=== PATIENT | female | born 1985 | race Caucasian/White ===

== ENCOUNTER 2023-07-02 02:57 | Emergency (ER) | payer BC, SELFPAY ==
[2023-07-02 01:30] VITALS: BMI 27.9
--- NOTE | 2023-07-02 03:28 | DOWNTIME ---
There was a [employer] Client [employer] Downtime on 07/02/2023 from 0100 to 07/02/2023 at 0322. Downtime documentation of patient's care, including medication administrations, has been reconciled in the electronic record per guidelines. Refer to the
patient's paper chart under the miscellaneous tab to see printed paper medication records and downtime forms.
[2023-07-02 03:55] LABS: Blood Urea Nitrogen 12 mg/dl (7-17); Calcium 8.8 mg/dl (8.4-10.2); Carbon Dioxide 21 mmol/L (22-30); Chloride 109 mmol/L (98-107); Estimated Creatinine Clearance 115 ml/min; Glucose 106 mg/dl (70-99); Potassium 3.6 mmol/L (3.5-5.1); Sodium 135 mmol/L (135-145); eGFR > 60.00
[2023-07-02 03:57] LABS: % Basophils 0.9 % (0-2); % Eosinophils 2.3 % (0-6); % Immature Granulocytes 0.3 % (0-0.5); % Lymphocytes 37.4 % (20.5-51.1); % Neutrophils 52.1 % (42.2-75.2); Absolute Basophils 0.1 10^3/uL (0-0.2); Absolute Eosinophils 0.3 10^3/uL (0-0.7); Absolute Lymphocytes 4.2 10^3/uL (1.2-3.4); Absolute Monocytes 0.8 10^3/uL (0.1-0.6); Absolute Neutrophils 5.9 10^3/uL (1.4-6.5); Hematocrit 38.6 % (37.0-47.0); Hemoglobin 13.1 g/dL (12.0-16.0); Mean Corp Hgb Conc. 33.9 g/dL (33.0-37.0); Mean Corpuscular Hgb 32.6 pg (27.0-31.0); Mean Platelet Volume 9.8 fL (7.4-10.4); Nucleated Red Blood Cells % 0 %; Platelet Count 276 10^3/uL (130-400); Red Blood Cell Count 4.02 10^6/uL (4.20-5.40); White Blood Cell Count 11.2 10^3/uL (4.8-10.8)
[2023-07-02 04:01] VITALS: BP 131/85
--- NOTE | 2023-07-02 04:16 | ED.GENMED ---
History of Present Illness
General
Chief Complaint: Dizziness
Source: patient
Nursing documentation reviewed up to this point in time: agreed with
Travel History
Have you had any contact with someone who has COVID-19?: No
Do you have any symptoms of coronavirus? Fever > 100 degrees, chills, cough, shortness of breath, sore throat, loss of taste or smell, muscle aches, or headache?: No
History of Present Illness
History of Present Illness:
Patient Name: Anjali Baca

Medical Record Number:� [id number]
: 1985
�
HPI: 37-year-old female presents emergency room complaining of dizziness.� Patient was sleeping when she awoke and was feeling dizzy like the room was spinning.� Patient developed nausea.� No headache.� No focal weakness.� Patient states she began
to have rapid heartbeat and was breathing rapidly.� She had tingling in her hands and feet.� Patient denies any symptoms at the time of my evaluation.� No history of similar symptoms.
�
�
PMH: None
�
PSH: ovarian cyst removal
�
FH: N/A
�
Social History
Smoker: n/a
Alcohol: Social
Drugs: Denies
�
ROS:
All systems reviewed and negative� (X)
Constitutional:
HEENT:
Respiratory:
Cardiac:
Abd/GI:
:
Musculoskeletal:
Skin:
Neuro: Dizzy
Endo:
Hematologic:
Psych:
�
�
Physical Exam:
General: Awake, Alert, Oriented X3. No acute distress.
Vitals mild hypertension
Head: Atraumatic
Eyes: Pupils equal, EOMI
Throat: Airway intact, no exudates
Neck: Trachea midline
Lungs: Clear and equal b/l
Heart: Regular rate, no murmurs
Abd: Soft, Non-tender, No pulsatile mass
Neuro: Cranial nerves intact, muscle strength equal bilaterally, cerebellar exam normal
Skin: Warm, dry, no rash
Extremities: pulses equal b/l, no edema
�
�
ECG:
NSR @ 96, normal axis, normal intervals, no ischemia
�
�
�
Imaging:
[default value]
�
�
POX: 99
Patient is Not Hypoxic
�
�
�
�
�
Clinical Impression/MDM:
Benign Positional vertigo, dehydration, dysrhythmia, anxiety
Pt was feeling better upon arrival to ER. However at approx. 2am she states symptoms returned.� She denies sense of room spinning but rather feels tingling all over and nausea.� Will treat with anit-emetics.
Signed out @ [address] Kwok� With plan to see respons to ivf and anti-emetics
�
Past History
Past History
ED Past Medical History: None and Other (hemorrhoids )
ED Past Surgical History: Gynecological (Endometriosis) and Other (Laparoscopic proceedure for endometriosis)
Social History
Tobacco: Non-smoker
Alcohol: Daily (wine 1-2 glasses)
Personal:
Living: with family
Employment: Employed
Phy Exam
Physical Exam
Physical Exam:
.
Course
Orders/Labs/Results
Orders:
Orders
07/02/23
Electrocardiogram (*1) Stat
Reason for Study: Chest Pain
Comment: DONE NO ORDER ENTERED
07/02/23 01:36
Complete Blood Count/With Diff Routine
07/02/23 02:35
Diphenhydramine [Benadryl] 50 mg .ROUTE .STK-MED ONE
Metoclopramide [Reglan] 10 mg .ROUTE .STK-MED ONE
07/02/23 02:48
Basic Metabolic Panel Routine
Abnormal Lab Results
07/02/23 07/02/23
01:36 02:48
WBC 11.2 H 10^3/uL
(4.8-10.8)
RBC 4.02 L 10^6/uL
(4.20-5.40)
MCH 32.6 H pg
(27.0-31.0)
Absolute Lymphs (auto) 4.2 H 10^3/uL
(1.2-3.4)
Absolute Monos (auto) 0.8 H 10^3/uL
(0.1-0.6)
Chloride 109 H mmol/L
(98-107)
Carbon Dioxide 21 L mmol/L
(22-30)
Glucose 106 H mg/dl
(70-99)
07/02/23 01:36
07/02/23 02:48
Vital Signs
Initial and Last Documented VS:
Initial Vital Signs
Pulse Resp Pulse Ox
97 16 98
07/02/23 03:29 07/02/23 03:29 07/02/23 03:29
Last Documented Vital Signs
Pulse Resp BP Pulse Ox
103 24 131/85 97
07/02/23 04:15 07/02/23 04:15 07/02/23 04:01 07/02/23 04:15
*Critical Care Note
Total Time (30-74mins, 75-104mins- exclusive of procedures): Not Applicable
ED Attending Note
-
Portions of this chart may have been created with voice recognition software.� Occasional wrong word or��sound alike� substitutions may have occurred due to the inherent limitations of voice recognition software.
Discharge Plan
Departure
Patient Disposition: Home (Routine Discharge)
Date of Disposition: 07/02/23
Time of Disposition: 04:16
Patient with high blood pressure during this ER visit?: Yes
Condition: Good
Discharge Problem:
Vertigo
Instructions: Vertigo (a Type of Dizziness) (DC), BLOOD PRESSURE
Prescriptions:
No Action
Mirena 20 mcg/24 hours (8 yrs) 52 mg Intrauterine Device
1 device INTRAUTERINE ONCE
desog-e.estradiol/e.estradiol [Kariva (28)] 0.15-0.02 mgx21 /0.01 mg x 5 Tablet
1 tab PO DAILY
Referrals:
Fortino Romero MD [Family Provider] -
Stand Alone Forms: Return to Work
Activity Restrictions/Additional Instructions:
It was a pleasure meeting you and taking part in your care. We hope for your continued healing and wellness.
Please read discharge instructions in their entirety. However, they are for general education and may not describe your exact diagnosis at discharge. Information on your ER visit and medical conditions were discussed with you along with appropriate
follow up information...
If indicated, please take your medications as instructed and indicated on discharge paperwork.
Please schedule a follow up appointment as directed. Call to schedule an appointment
Please return to the emergency department with ANY change in, persisting, or worsening of symptoms. If any of your symptoms do not improve, or persist, or become more severe within 6-12 hours, please return to the emergency department for further
care.
Please return to the emergency department if you develop a headache, neck pain/stiffness, fever greater than 100.4F, chest pain, shortness of breath, persistent nausea, vomiting, slurred speech, difficulty walking, numbness/tingling, weakness, signs
of infection or any other symptoms that are worrisome to you.
If you have any questions or concerns please do not hesitate to call the Hospital at .
Interventions
Interventions:
*Nursing Disposition Last Done: 07/02/23 04:34
Discharge Date and Time
Discharge Date/Time: 07/02/23 04:36
Print Language: YAKUT
== END 2023-07-02 04:36 | disposition home or self-care (01) ==
LOC: EMR 02:57
PROVIDERS: Emergency Medicine; EMERGENCY PHYSICIAN Student in an Organized Health Care Education/Training Program; FAMILY PHYSICIAN Internal Medicine Geriatric Medicine
DX: R42 Dizziness and giddiness (principal)
CPT/HCPCS: 99283; 80048; 85025; 93005

== ENCOUNTER 2023-07-08 16:09 | Emergency (ER) | payer BC, SELFPAY ==
[2023-07-08 16:11] VITALS: BP 134/98
[2023-07-08] MEDS: ZOFRAN ODT (ORALLY DISINTEGRATING) 4 MG PO (16:27)
[2023-07-08 16:38] LABS: % Basophils 0.6 % (0-2); % Eosinophils 0.7 % (0-6); % Immature Granulocytes 0.2 % (0-0.5); % Lymphocytes 21.4 % (20.5-51.1); % Monocytes 4.7 % (1.7-9.3); % Neutrophils 72.4 % (42.2-75.2); Absolute Basophils 0.1 10^3/uL (0-0.2); Absolute Eosinophils 0.1 10^3/uL (0-0.7); Absolute Lymphocytes 1.9 10^3/uL (1.2-3.4); Absolute Monocytes 0.4 10^3/uL (0.1-0.6); Absolute Neutrophils 6.3 10^3/uL (1.4-6.5); Hematocrit 36.2 % (37.0-47.0); Hemoglobin 12.6 g/dL (12.0-16.0); Mean Corp Hgb Conc. 34.8 g/dL (33.0-37.0); Mean Corpuscular Hgb 32.8 pg (27.0-31.0); Mean Corpuscular Volume 94.3 fL (81.0-99.0); Mean Platelet Volume 9.8 fL (7.4-10.4); Nucleated Red Blood Cells % 0 %; Platelet Count 280 10^3/uL (130-400); Red Blood Cell Count 3.84 10^6/uL (4.20-5.40); White Blood Cell Count 8.7 10^3/uL (4.8-10.8)
--- NOTE | 2023-07-08 16:47 | ED.GENMED ---
History of Present Illness
General
Chief Complaint: Dizziness
Source: patient
Exam Limitations: none
Time Seen by Provider: 07/08/23 16:42
Nursing documentation reviewed up to this point in time: agreed with
Travel History
Have you had any contact with someone who has COVID-19?: No
Do you have any symptoms of coronavirus? Fever > 100 degrees, chills, cough, shortness of breath, sore throat, loss of taste or smell, muscle aches, or headache?: No
History of Present Illness
History of Present Illness:
37-year-old female with a past medical history of cervical lesions presenting to the emergency department today with dizziness for the past week. 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
of dizziness, nausea, and palpitations. Patient has never had anything like this before. Patient states that she felt like she was going to and she called EMS. Patient states that on the way to emergency department, she started to feel
better. She was treated at that time with Reglan and Benadryl which improved her symptoms. Patient did not receive a CT scan at that time. She follow-up with her PCP who diagnosed her with vertigo. Her PCP also scheduled her for cardiology
follow-up considering her tachycardia. Patient states that she felt well for a few days, however she started to have more episodes. She did not be concerned about these because she has been nose vertigo, however today when she was at school
working, the episode got so severe and she felt so sick that she went to her school nurse to notice that she was pale, her blood pressure was elevated, and he called EMS. Patiently currently feels dizzy and nauseous, states that she feels like she
is on a moving boat. Patient currently denies chest pain, shortness of breath.
Past History
Past History
ED Past Medical History: None and Other (hemorrhoids )
ED Past Surgical History: Gynecological (Endometriosis) and Other (Laparoscopic proceedure for endometriosis)
Social History
Tobacco: Non-smoker
Alcohol: Daily (wine 1-2 glasses)
Personal:
Living: with family
Employment: Employed
Review of Systems
Review of Systems
All Other Systems: ROS reviewed and negative except as documented in HPI and ROS
Phy Exam
Physical Exam
Physical Exam:
Vitals: Patient vital signs are stable
General: Patient is well appearing and in no acute distress
Skin: Warm and dry, no rashes or lesions
Head: Normocephalic, atraumatic
Eyes: EOMs intact, no nystagmus
Cardiac: Regular rate and rhythm, no murmurs
Pulm: Normal respiratory effort
Abdomen: No abdominal tenderness
Neuro: AAOx3. CN II-XII intact. No focal neurologic deficits.
Course
Orders/Labs/Results
Orders:
Orders
07/08/23 16:20
EKG [Electrocardiogram (*1)] Urgent
Reason for Study: Chest Pain
EKG- Treatment ONCE
Test Result ONCE
07/08/23 16:26
Ondansetron Orally Disint [Zofran Odt (Orally Disintegrating)] 4 mg .ROUTE .STK-MED ONE
07/08/23 16:27
Ondansetron Orally Disint [Zofran Odt (Orally Disintegrating)] 4 mg PO NOW STA
07/08/23 16:31
CBC/With Diff [Complete Blood Count/With Diff] Urgent
CMP [Comprehensive Metabolic Panel] Urgent
HCG, Serum Qualitative Screen Urgent
Troponin I Urgent
07/08/23 17:06
0.9% Sodium Chloride 500 ml [Nss] 500 ml IV BOLUS
Diphenhydramine [Benadryl] 12.5 mg IV NOW STA
Metoclopramide [Reglan] 10 mg IV NOW STA
07/08/23 17:16
CT Head W/o Iv Contrast Urgent
Comment:
Reason For Exam: persistent dizziness
07/08/23 17:31
Physical Therapy Consult [Pt Eval And Treat] Urgent
Treatment: vestibular evaluation
Activity Level: Ambulate
Abnormal Lab Results
07/08/23
16:31
RBC 3.84 L 10^6/uL
(4.20-5.40)
Hct 36.2 L %
(37.0-47.0)
MCH 32.8 H pg
(27.0-31.0)
Glucose 105 H mg/dl
(70-99)
07/08/23 16:31
07/08/23 16:31
Vital Signs
Initial and Last Documented VS:
Initial Vital Signs
Temp Pulse Resp BP Pulse Ox
98.4 F 80 18 134/98 98
07/08/23 16:11 07/08/23 16:11 07/08/23 16:11 07/08/23 16:11 07/08/23 16:11
Last Documented Vital Signs
Temp Pulse Resp BP Pulse Ox
98.4 F 82 16 123/78 100
07/08/23 16:11 07/08/23 19:20 07/08/23 19:20 07/08/23 19:20 07/08/23 19:20
MDM/Problems Addressed
Differential Diagnosis Includes:
ddx include BPV, vestibular neuritis, complex migraine, cerebral tumor, panic attack
MDM/Problems Addressed:
dizziness
Chronic conditions affecting care:
n/a
Acute Exacerbation and/or Progression of Chronic Illness:
n/a
*Radiology
Radiology exam reviewed: preliminary read by ED provider (no acute intracranial abnormality)
*Pulse Oximetry
Patient hypoxic: no
*Critical Care Note
Total Time (30-74mins, 75-104mins- exclusive of procedures): Not Applicable
Data Reviewed
Review of Other/Old Records Reveals: Records (reviewed ER physician documentation from 07/02/2023)
Source: patient
Patient Management
Escalation/DeEscalation of care consider admission/obs:
37-year-old female with a past medical history of cervical lesions presenting to the emergency department today with dizziness for the past week. 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
of dizziness, nausea, and palpitations. Patient has never had anything like this before.
Seen here in the ER for this last week. She followed up with her primary and was diagnosed with vertigo. Has vestibular therapy scheduled. Patient was tachycardic upon presentation to ED last week and has holter monitor and echo scheduled with
[facility] in the coming days. CT head negative. Here in the ER, patient's symptoms improved with benadryl, reglan, and fluids. Patient was sent home with meclizine.
ED Attending Note
-
Portions of this chart may have been created with voice recognition software.� Occasional wrong word or��sound alike� substitutions may have occurred due to the inherent limitations of voice recognition software.
Discharge Plan
Departure
Patient Disposition: Home (Routine Discharge)
Date of Disposition: 07/08/23
Time of Disposition: 19:03
Patient with high blood pressure during this ER visit?: Yes
Condition: Good
Discharge Problem:
Dizziness
Instructions: Vertigo (a Type of Dizziness) (DC), Dizziness, BLOOD PRESSURE
Prescriptions:
New
meclizine 25 mg tablet
25 mg PO TID PRN (Reason: dizziness) Qty: 14 0RF
No Action
Mirena 20 mcg/24 hours (8 yrs) 52 mg Intrauterine Device
1 device INTRAUTERINE ONCE
desog-e.estradiol/e.estradiol [Kariva (28)] 0.15-0.02 mgx21 /0.01 mg x 5 Tablet
1 tab PO DAILY
Referrals:
Fortino Romero MD [Family Provider] - Call in 1-3 days for appt
Activity Restrictions/Additional Instructions:
Please return to the emergency department should you experience an acute worsening of your symptoms, slurring of your speech, new or worsening headaches, confusion, syncopal episodes, chest pain, shortness of breath, or other concerning signs or
symptoms.
Please follow up with your primary care provider and cardiology.
Interventions
Interventions:
*Risk Screen - Suicide Last Done: 07/08/23 16:11
*General Assessment Last Done: 07/08/23 16:11
*Neglect/Abuse Screening Last Done: 07/08/23 16:11
ED- Fall Risk Assessment Last Done: 07/08/23 19:20
*ED COVID-19 Vaccine History Last Done: 07/08/23 16:11
*Nursing Disposition Last Done: 07/08/23 19:20
ED- Neurological Assessment Last Done: 07/08/23 16:53
ED- Cardiac Assessment Last Done: 07/08/23 19:20
ED Swallowing Screen Last Done: 07/08/23 16:53
Discharge Date and Time
Discharge Date/Time: 07/08/23 19:20
Print Language: ARABIC
[2023-07-08 16:52] LABS: HCG, Serum Qualitative Screen Negative
[2023-07-08 17:04] LABS: ALT (SGPT) 31 U/L (0-35); AST (SGOT) 29 U/L (14-36); Albumin 4.4 g/dl (3.5-5.0); Alkaline Phosphatase 50 U/L (38-126); Blood Urea Nitrogen 10 mg/dl (7-17); Calcium 9.7 mg/dl (8.4-10.2); Carbon Dioxide 23 mmol/L (22-30); Chloride 106 mmol/L (98-107); Glucose 105 mg/dl (70-99); Sodium 137 mmol/L (135-145); Total Bilirubin 0.4 mg/dl (0.2-1.3); Total Protein 7.2 g/dl (6.3-8.2); eGFR > 60.00
[2023-07-08 17:05] LABS: Troponin I < 0.012 ng/ml
[2023-07-08 17:24] VITALS: BP 138/91
[2023-07-08] MEDS: BENADRYL 12.5 MG IV (17:24)
[2023-07-08] MEDS: NSS 500 IV (17:24)
[2023-07-08] MEDS: REGLAN 10 MG IV (17:25)
[2023-07-08 19:20] VITALS: BP 123/78
== END 2023-07-08 19:20 | disposition home or self-care (01) ==
LOC: EMR 16:09
PROVIDERS: Emergency Medicine; EMERGENCY PHYSICIAN Emergency Medicine; FAMILY PHYSICIAN Internal Medicine Geriatric Medicine
DX: R42 Dizziness and giddiness (principal)
CPT/HCPCS: 99284; 96374; 96375; 96361; 70450; 80053; 84484; 84703; 85025; 93005

== ENCOUNTER → 2023-07-15 09:26 | Outpatient (REF) | payer BC, SELFPAY | LOC: RCS 09:26 | PROVIDERS: ATTENDING PHYSICIAN Nurse Practitioner Family; FAMILY PHYSICIAN Internal Medicine Geriatric Medicine | DX: R42 Dizziness and giddiness (principal); R00.2 Palpitations; I49.8 Other specified cardiac arrhythmias | CPT/HCPCS: 93225; 93226 ==

== ENCOUNTER → 2023-07-22 08:21 | Outpatient (REF) | payer BC, SELFPAY | LOC: HWRCS 08:21 | PROVIDERS: ATTENDING PHYSICIAN Nurse Practitioner Family; FAMILY PHYSICIAN Internal Medicine Geriatric Medicine | DX: R42 Dizziness and giddiness (principal); R00.2 Palpitations; I49.8 Other specified cardiac arrhythmias | CPT/HCPCS: 93306 ==

== ENCOUNTER 2023-10-03 23:56 | Observation (INO) | payer BC, SELFPAY ==
[2023-10-03] VITALS (9 sets, daily range): BP systolic 119–189; BP diastolic 74–109; PULSE 85–89
--- NOTE | 2023-10-03 18:38 | ED.GENMED ---
History of Present Illness
General
Chief Complaint: Headache
Source: patient
Exam Limitations: none
Time Seen by Provider: 10/03/23 18:16
Nursing documentation reviewed up to this point in time: agreed with
History of Present Illness
History of Present Illness:
38-year-old female presents to the ER for evaluation. This is patient's third visit for dizziness. She reports she started with a type of vertigo/dizziness at the beginning of June. since then she has had multiple episodes which are getting
worse. She was seen here twice prior to today related to this. She has been followed by her family doctor but has never seen neurologist. She was started on propranolol but reports that was not improving her symptoms and she had a lot of side
effects from the medication. She was prescribed vestibular therapy and did go to therapy. She was related they felt that she did not have positional type vertigo but her vertigo was related to small movements of her eyes. She was diagnosed with
vestibular migraine .
she reports with the typical episodes of vertigo she starts to have room spinning but feels like the blood is draining from by like she is in a pass out. The symptoms are getting worse and today she felt like she was going to pass out for several
hours. She was ordered a Holter monitor and echocardiogram by her family doctor which was done and normal. She is due to see cardiology in the future.
She has no associated chest pain with this. She also feels that she may be a little dehydrated today because she has had diarrhea off and on since August this is also not been worked up.
Past History
Past History
ED Past Medical History: None and Other (hemorrhoids )
ED Past Surgical History: Gynecological (Endometriosis) and Other (Laparoscopic proceedure for endometriosis)
Social History
Tobacco: Non-smoker
Alcohol: Daily (wine 1-2 glasses)
Personal:
Living: with family
Employment: Employed
Review of Systems
Review of Systems
Allergies reviewed?: Yes
All Other Systems: ROS reviewed and negative except as documented in HPI and ROS
Constitutional: Reports no symptoms; Denies fever, fatigue or chills
EENT: Reports no symptoms
Respiratory: Reports no symptoms
Cardiac: Reports no symptoms
ABD/GI: Reports diarrhea; Denies abdominal pain or vomiting
: Reports no symptoms
Musculoskeletal: Reports no symptoms
Skin: Reports no symptoms
Neurological: Reports dizzy; Denies headache, weakness or numbness
Psychiatric: Reports no symptoms
Phy Exam
General Physical Exam
General Presentation: no apparent distress
General age: appears stated age
General Skin: warm and dry
General Habitus: normal
General Mental: alert
General Hydration: appears well hydrated
Eye Exam
Eye Exam: PERRL, EOMI and other (No nystagmus bilaterally)
Eye Exam General: PERRL: bilateral and EOM intact: bilateral
Pupil Exam: Bilateral: round and reactive
Cardiovascular Exam
Cardiovascular Exam: regular rate/rhythm, no murmur and normal peripheral pulses
Neurological Exam
Neurological Exam: alert, oriented x3, no motor deficits and no sensory deficits
Justin Coma Scale
Eye Opening: Spontaneous
Verbal Response: Oriented
Motor Response: Obeys Commands
GCS Total Score: 15
Cerebellar
Cerebellar Function: normal finger to nose
Musculoskeletal Exam
Musculoskeletal Exam: full ROM
Skin Exam
Skin Exam: normal color and warm/dry
Psychiatric Exam
Psychiatric Exam: normal mood/affect
Course
Orders/Labs/Results
Orders:
Orders
10/03/23 19:01
IV Insert/Care/Rem.- Treatment PRN
Orthostatic VS- Treatment ONCE
0.9% Sodium Chloride 1000 ml [Nss] 1,000 ml IV BOLUS
10/03/23 19:08
Complete Blood Count/With Diff Urgent
Comprehensive Metabolic Panel Urgent
10/03/23 22:07
Meclizine [Antivert] 25 mg PO NOW STA
10/03/23 22:09
Stool Culture Urgent
CHRIS Source: Feces/Stool
Specimen Description:
10/03/23 22:13
Electrocardiogram (*1) Stat
Reason for Study: Other
Other Reason for Exam: chest pain
Cardiac Monitoring- Treatment ONCE
EKG- Treatment ONCE
10/03/23 23:06
Admit/Transfer Patient As Directed
Co-Sign Provider:
Level of Care: Observation services
Assign to:: Medical/Surgical
Physician / Group: [facility]
Diagnosis: vertigo
10/03/23 23:07
Code Status As Directed
Resuscitation Status: Full Code
10/03/23 23:46
Topiramate [Topamax] 25 mg PO NOW STA
10/04/23 01:00
NEUROLOGY CONSULT Routine
Consulting Provider: German Hull
Was physician already notified: Yes
Activity As Directed
Activity Level: As Tolerated
Pneumatic Compression Sleeves As Directed
Type: Knee high
Vital Signs As Directed
Frequency: Per unit guidelines
DX Deep Vein Thrombosis Video Routine
10/04/23 04:31
Complete Blood Count/No Diff IN AM
Comprehensive Metabolic Panel IN AM
10/04/23 Breakfast
Regular
At Your Request: Full Participation
Meclizine [Antivert] 25 mg PO Q8H
10/04/23 08:00
Topiramate [Topamax] 25 mg PO DAILY
10/04/23 22:00
ethynodiol diac-eth estradiol [Kelnor (28)] 1 tablet PO HS
Abnormal Lab Results
10/03/23
19:08
WBC 15.2 H 10^3/uL
(4.8-10.8)
RBC 4.19 L 10^6/uL
(4.20-5.40)
MCH 32.7 H pg
(27.0-31.0)
Abs Immat Gran (auto) 0.1 H 10^3/uL
(0-0.05)
Absolute Neuts (auto) 11.6 H 10^3/uL
(1.4-6.5)
Absolute Monos (auto) 0.8 H 10^3/uL
(0.1-0.6)
Neutrophils % 76.6 H %
(42.2-75.2)
Lymphocytes % 16.4 L %
(20.5-51.1)
Carbon Dioxide 21 L mmol/L
(22-30)
AST 57 H U/L
(14-36)
ALT 89 H U/L
(0-35)
10/03/23 19:08
10/03/23 19:08
Vital Signs
Initial and Last Documented VS:
Initial Vital Signs
Temp Pulse Resp BP Pulse Ox
98.3 F 98 20 189/90 99
10/03/23 17:13 10/03/23 17:13 10/03/23 17:13 10/03/23 17:13 10/03/23 17:13
Last Documented Vital Signs
Temp Pulse Resp BP Pulse Ox
99.0 F 84 19 143/97 100
10/04/23 00:59 10/04/23 00:59 10/04/23 00:59 10/04/23 00:59 10/04/23 00:59
MDM/Problems Addressed
MDM/Problems Addressed:
Patient is a 38-year-old female who presents to the ER for the third time complaining of vertigo. She has had intermittent episodes since the spring of vertigo room spinning sensation and also reports she feels the sensation that she is going to
pass out. She was seen by family doctor and here in the ER twice. She had imaging in July when she was seen here in the ER which was negative. She had echo and Holter monitor by cardiology which was also negative. She was given propranolol by
family doctor but is not been taking this because she did not the way it made her feel. Today she had another episode of vertigo but also described a sensation that she was going to pass out this sensation was not improving. She was given fluids
here in the ER because she in addition to current symptoms have also has had diarrhea. On reevaluation patient continues to not feel well she has a sensation that she feels like she is going to pass out again even while sitting. She has been in
normal sinus rhythm here EKG normal at 72.
Her white count is mildly elevated possibly from diarrhea episode. Will obtain stool culture.
Case reviewed with neurology who is aware the patient is being admitted and does recommend Topamax and meclizine for admission d/c with admitting hospitalist.
*Pulse Oximetry
Patient hypoxic: no
*Critical Care Note
Total Time (30-74mins, 75-104mins- exclusive of procedures): Not Applicable
Data Reviewed
Review of Other/Old Records Reveals: Radiology Studies and Other (Previous ED visits)
ED Attending Note
-
Portions of this chart may have been created with voice recognition software.� Occasional wrong word or��sound alike� substitutions may have occurred due to the inherent limitations of voice recognition software.
Discharge Plan
Departure
Patient Disposition: Admit
Date of Disposition: 10/03/23
Time of Disposition: 22:11
Admit to: Med/Surg
Admit to doctor: hospitalist
Presentation/result/management discussed w/ accepting MD/DO: Hospitalist
Patient with high blood pressure during this ER visit?: Yes
Condition: Fair
Covid-19: Not Applicable
Discharge Problem:
Vertigo
Interventions
Interventions:
*Risk Screen - Suicide Last Done: 10/04/23 01:45
*General Assessment Last Done: 10/03/23 17:13
*Neglect/Abuse Screening Last Done: 10/03/23 17:13
ED- Fall Risk Assessment Last Done: 10/04/23 00:59
*ED COVID-19 Vaccine History Last Done: 10/04/23 01:45
*Nursing Disposition Last Done: 10/04/23 00:59
ED- Neurological Assessment Last Done: 10/03/23 19:29
Discharge Date and Time
Discharge Date/Time: 10/04/23 01:00
[2023-10-03] MEDS: NSS 1000 IV (19:08)
[2023-10-03 19:20] LABS: % Basophils 0.9 % (0-2); % Eosinophils 0.6 % (0-6); % Immature Granulocytes 0.3 % (0-0.5); % Lymphocytes 16.4 % (20.5-51.1); % Monocytes 5.2 % (1.7-9.3); % Neutrophils 76.6 % (42.2-75.2); Absolute Basophils 0.1 10^3/uL (0-0.2); Absolute Eosinophils 0.1 10^3/uL (0-0.7); Absolute Immature Granulocytes 0.1 10^3/uL (0-0.05); Absolute Lymphocytes 2.5 10^3/uL (1.2-3.4); Absolute Monocytes 0.8 10^3/uL (0.1-0.6); Absolute Neutrophils 11.6 10^3/uL (1.4-6.5); Hematocrit 40.3 % (37.0-47.0); Hemoglobin 13.7 g/dL (12.0-16.0); Mean Corpuscular Hgb 32.7 pg (27.0-31.0); Mean Corpuscular Volume 96.2 fL (81.0-99.0); Mean Platelet Volume 9.6 fL (7.4-10.4); Nucleated Red Blood Cells % 0 %; Platelet Count 280 10^3/uL (130-400); Red Blood Cell Count 4.19 10^6/uL (4.20-5.40); Red Cell Dist. Width 11.9 % (11.5-14.5); White Blood Cell Count 15.2 10^3/uL (4.8-10.8)
[2023-10-03 19:38] LABS: ALT (SGPT) 89 U/L (0-35); AST (SGOT) 57 U/L (14-36); Albumin 4.7 g/dl (3.5-5.0); Alkaline Phosphatase 70 U/L (38-126); Blood Urea Nitrogen 9 mg/dl (7-17); Calcium 10.2 mg/dl (8.4-10.2); Carbon Dioxide 21 mmol/L (22-30); Chloride 106 mmol/L (98-107); Glucose 97 mg/dl (70-99); Potassium 4.1 mmol/L (3.5-5.1); Sodium 137 mmol/L (135-145); Total Bilirubin 0.8 mg/dl (0.2-1.3); Total Protein 7.6 g/dl (6.3-8.2); eGFR > 60.00
[2023-10-03] MEDS: ANTIVERT 25 MG PO (22:30)
--- NOTE | 2023-10-03 22:44 | HPS.HSE ---
Addendum entered and electronically signed by Hermilo Dubose DO 10/03/23 23:57:
Patient seen and examined independently. Agree with findings and plan as set forth by ADAMA Maya.
Patient is a 38y F with PMH significant for endometriosis who presents to ED for evaluation of 'dizziness'. Patient reports intermittent symptoms since the beginning of June. Patient has been evaluated by Vestibular therapy and treated for
vestibular migraine. She has been evaluated by Cardiology and completed outpatient Holter monitoring, etc with significant findings. She was recently started on propranolol but discontinued this due to adverse effects.
Patient reports sensation of flushed feeling, lightheadedness, globus sensation and dizziness.
Today she had multiple episodes of non-bloody diarrhea in addition to her other symptoms which prompted evaluation in the ED.
Neurology recommended observation and initiation of Topamax and meclizine for her ongoing symptoms.
Ass:
Vestibular Migraine
Generalized Anxiety
Endometriosis
Abnormal LFTs
Plan:
Observe overnight for further evaluation and treatment.
Meclizine TID and Topamax with first doses this evening.
Neurology evaluation in the AM.
Follow for clinical improvement and / or any new or additional symptoms or complaints.
Check stool studies if any further diarrhea.
Original Note:
Family Physician
-
Family Physician: Fortino Romero
Chief Complaint
-
dizzy
History of Present Illness
38-year-old female with past medical history for hemorrhoids, endometriosis, cervical cyst presented to us with dizziness. She reports she started with a type of vertigo/dizziness at the beginning of June. since then she has had multiple
episodes which are getting worse. she feels flushed and feels like she is going to faint. some times she feels slurred speech and blurry vision. patient stated intermittent but it lasts for 24-72 hours. She was started on propranolol but reports
that was not improving her symptoms and she had a lot of side effects from the medication. She was prescribed vestibular therapy and did go to therapy. She was ordered a Holter monitor and echocardiogram by her family doctor which was done and
normal. patient denied BERMEO. denied fever, chills, runny nose, congestion, cough. denied abdominal pain, n/v. she feels something stuck in her throat for some time. she took Prilosec for her symptoms with no improvement. patient had multiple episodes
of diarrhea today. denied dysuria or hematuria.
received meclizine and normal saline in ER. admitting for further management.
Medical History
Past Medical History
Past Medical History: Reports Other
Additional Past Medical History:
anxiety
vestibular migraine
endometriosis
Past Surgical History: Reports Other
Additional Past Surgical History:
ovarian cyst removal
breast augmentation
Social History
Tobacco: Non-smoker
Alcohol: Daily (glass of wine)
Drug: None
Personal: Single
Employment: Employed
Family History
Family History: Not pertinent
Allergies / Home Medications
Allergies reflects when Allergies were last updated in [email or web address].
Home Medications with original date entered in [email or web address]
Allergy/Medication List:
Allergies
Allergy/AdvReac Type Severity Reaction Status Date / Time
No Known Allergies Allergy Verified 10/03/23 17:13
Home Medications
Ignatia Lilibeth 30c 4 tab PO QIDPRN PRN stress/anxiety 10/03/23
Vertifree 2 tab PO QIDPRN PRN dizziness/nausea 10/03/23
dgbzyuw-ufnqkfjirwaaf-ekowlimj 250 mg-250 mg-65 mg tablet (Excedrin Migraine) 2 tab PO BIDPRN PRN migraine 10/03/23
ergocalciferol (vitamin D2) 1,250 mcg (50,000 unit) capsule 1,250 mcg PO BAXTER 10/03/23
ethynodiol diacetate-ethinyl estradiol 1 mg-35 mcg tablet (Kelnor) 1 tab PO HS 10/03/23
loperamide 2 mg capsule 2 mg PO DIRECTED PRN diarrhea 10/03/23
omeprazole 20 mg tablet,delayed release 20 mg PO DAILY PRN acid reflux 10/03/23
propranolol 20 mg tablet 20 mg PO DAILYPRN PRN high blood pressure 10/03/23
Review of Systems
-
Constitutional: Reports No Symptoms
EENT: Reports No Symptoms
Respiratory: Reports No Symptoms
Cardiac: Reports No Symptoms
Abdomen/GI: Reports No Symptoms
: Reports No Symptoms
Musculoskeletal: Reports No Symptoms
Skin: Reports No Symptoms
Neurological: Reports Dizzy
Endocrine: Reports No Symptoms
Hematologic/Lymphatic: Reports No Symptoms
Psych: Reports No Symptoms
Physical Exam
Vital Signs
Vital Signs
Temp Pulse Resp BP Pulse Ox
98.3 F 74 19 148/91 99
10/03/23 17:13 10/03/23 22:30 10/03/23 22:30 10/03/23 22:00 10/03/23 22:33
Physical Exam
General: Well Developed, Well Nourished and No Apparent Distress
HEENT: NormoCephalic, Moist mucous membranes and Atraumatic
Respiratory: Clear
Cardiac: S1/S2 and Regular Rhythm; No Murmur or Rub
GI: Soft, Non Tender, Non Distended and Normal Bowel Sounds; No Organomegaly
Rectal: Deferred by Provider
Musculoskeletal: No Clubbing, No Cyanosis and No Edema
Skin: No Rash
Neuro: AO x 3 and Nonfocal/grossly intact
Psych: Calm
Laboratory Results
-
10/03/23 19:08
10/03/23 19:08
Laboratory Results
Total Bilirubin 0.8 mg/dl (0.2-1.3) 10/03/23 19:08
AST 57 U/L (14-36) H 10/03/23 19:08
ALT 89 U/L (0-35) H 10/03/23 19:08
Alkaline Phosphatase 70 U/L (38-126) 10/03/23 19:08
Data Reviewed
-
Lab Data: Labs Reviewed by me
Impression/Plan
-
#?vertigo/dizziness likely migraine
-Topamax and meclizine continued
-neurology consulted
#leukocytosis likely stress reaction
-wbc 15.2
-afebrile, ctm
#elevated liver enzymes likely from Excedrin
-ast 57,alt 89
-continue to trend lft
-denied abdominal pain
#DVT prophylaxis
-scd
#CODE status
-full code
[2023-10-04] MEDS: TOPAMAX 25 MG PO ×3 (00:07→18:30)
[2023-10-04 00:59] VITALS: BP 143/97; BMI 26.5
--- NOTE | 2023-10-04 02:49 | PTCARENOTE ---
Patient arrived from the ED via stretcher at approximately 0100. Patient ambulated from stretcher to bed x1 assist d/t feeling of dizziness/vertigo. Patient AAOx3, drowsy. VSS as documented. Assessment as documented. Patient oriented to room. Bed in
lowest position. Call bose within reach.
[2023-10-04 05:22] LABS: Hemoglobin 12.1 g/dL (12.0-16.0); Mean Corp Hgb Conc. 34.6 g/dL (33.0-37.0); Mean Corpuscular Hgb 32.9 pg (27.0-31.0); Mean Corpuscular Volume 95.1 fL (81.0-99.0); Mean Platelet Volume 10.2 fL (7.4-10.4); Platelet Count 218 10^3/uL (130-400); Red Blood Cell Count 3.68 10^6/uL (4.20-5.40); Red Cell Dist. Width 11.8 % (11.5-14.5); White Blood Cell Count 9.6 10^3/uL (4.8-10.8)
[2023-10-04 05:47] LABS: ALT (SGPT) 68 U/L (0-35); AST (SGOT) 46 U/L (14-36); Albumin 3.9 g/dl (3.5-5.0); Alkaline Phosphatase 44 U/L (38-126); Blood Urea Nitrogen 7 mg/dl (7-17); Calcium 8.9 mg/dl (8.4-10.2); Carbon Dioxide 22 mmol/L (22-30); Chloride 105 mmol/L (98-107); Estimated Creatinine Clearance 114 ml/min; Glucose 86 mg/dl (70-99); Potassium 3.6 mmol/L (3.5-5.1); Sodium 135 mmol/L (135-145); Total Bilirubin 1.5 mg/dl (0.2-1.3); Total Protein 6.4 g/dl (6.3-8.2); eGFR > 60.00
[2023-10-04 06:15] LABS: TSH Reflex To Free T4 2.64 uIU/ml (0.47-4.68)
[2023-10-04] MEDS: ANTIVERT 25 MG PO ×3 (06:35→22:37)
[2023-10-04 08:00] VITALS: BP 140/87
--- NOTE | 2023-10-04 10:10 | W.PN.HOSP.TC ---
Addendum entered and electronically signed by Ramiro Prince DO 10/04/23 15:56:
Discussed with Neurology (Dr. Hull).
Brain MRI normal.
Neurology recommends discharge today on Topamax & aspirin. Diagnosis is migraine equivalent without headaches.
Patient requesting GI consult for brick red stools, abdominal pain, loose stools, 12 lb. weight loss. She apparently has tried to get in to see GI as outpatient but no upcoming appointments available. She is requesting GI consult. Order placed, and
Dr. Wahl will see her in am.
Original Note:
Today's Communication/Plan
-
Await brain MRI
Assessment / Plan
Assessment / Plan
Gen-AAOx3, NAD
HEENT-NC, AT, anicteric, clear oral mm
Neck-supple
CV-reg, no M, +S1/S2
Lungs-clear B/L
Abd-soft, NT, ND
Ext-no edema
Musculoskeletal-no cyanosis, clubbing
Skin-warm and dry
Neuro-grossly non-focal
Psych-calm, cooperative
Possible vestibular migraine -await brain MRI. Neurology consulted.
Elevated blood pressure -would refer her to nephrology after discharge for further evaluation of blood pressure and consideration for secondary causes.
Elevated liver enzymes -total bili 1.5 mild transaminase elevation, normal alkaline phosphatase. Etiology unclear. Check direct bilirubin, GGT.
Anxiety disorder
Endometriosis
Anticipated Discharge: Within 24 hours
Subjective/Interval History
-
Date of Service: October 04, 2023
Patient seen and examined. Denies headache currently. Feels a flushing sensation in her head.
Objective Data
-
Labs:
Laboratory Results
10/04/23
04:31
WBC 9.6
Hgb 12.1
Hct 35.0 L
Plt Count 218 D
Sodium 135
Potassium 3.6
Chloride 105
Carbon Dioxide 22
BUN 7
Creatinine 0.7
Glucose 86
Calcium 8.9
Total Bilirubin 1.5 H
AST 46 H
ALT 68 H
Alkaline Phosphatase 44
Vital Signs:
Vital Signs
Temp Pulse Resp BP Pulse Ox
98.5 F 82 14 140/87 99
10/04/23 08:00 10/04/23 08:00 10/04/23 08:00 10/04/23 08:00 10/04/23 08:00
I&O
10/03/23 10/04/23 10/05/23
06:59 06:59 06:59
Intake Total 360 / 360
Balance 360 / 360
Review of Systems
-
History Source: Patient
All other systems: Reviewed and negative
[2023-10-04 11:58] LABS: Direct Bilirubin 0.3 mg/dl (0.0-0.4); GGTP 51 U/L (12-43)
[2023-10-04 13:21] VITALS: BMI 26.5
--- NOTE | 2023-10-04 15:37 | CM ---
Patient seen at bedside with physician. Patient father also present. CM reviewed OBS form and signed form placed on chart. Patient states that she lives with alone in a 3 story home. Patient also has an 8 year old son that is autistic that lives
with her but currently is with the grandparents. Patient states that she normally is independent of ADL's and IADL's. Patient stated that she uses [facility] in [place] and that her PCP is Dr. Romero. Patient son to come in with grandparents for a
short visit, request reviewed with nursing and approved. CM will continue to follow for discharge planning needs.
Plan; home with no needs anticipated.
[2023-10-04 15:40] VITALS: BP 148/97
--- NOTE | 2023-10-04 15:41 | CON.NEURO4 ---
Consultation - Neurology 4
-
CONSULTING PHYSICIAN: German Hull MD(Neurology)
REFERRING PHYSICIAN: Hospitalist
DICTATED BY: German Hull MD
DATE/TIME OF REQUEST: 10/03/2023
DATE/TIME OF CONSULTATION: 10/04/2023 1230p
Reason for Consultation: Dizziness
History of Present Illness:
This is a 38 year old right handed female who has presented to the hospital with dizziness. She gives a h/o GERD, endometriosis who had been in her USOH till earlier this year when she started to experience recurrent episodes of dizziness and
slurred speech associated with flushing sensation and generalized warmth. Her dizzy episodes are spinning sensation and disabling and she is unable to do her ADLs. Occasionally associated with numbness on one side. No h/o head or neck injuries. No
headaches loss of vision numbness or weakness of face arms or legs. No hearing loss or tinnitus. Occasional light sensitivity. No visual aura.
No aphasia, dysphagia. No incoordination or gait impairment
Past Medical History: Endometriosis
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
Family History: Significant for migraines
Social History: Lives at home. Does not smoke or use alcohol
Allergies: NKA
Home Medications: Propranolol, Omeprazole, Excedrin, OC
Review of Symptoms:
Patient denies any fever, headache, chest pain, shortness of breath, GI or symptoms.
�Per the HPI.�All systems are reviewed negative except above.
�-
Vital Signs:
Temp Pulse Resp BP Pulse Ox
36.9 C 82 14 140/87 99
Physical Exam:
The patient is afebrile, heart sounds S1 and S2 are regular, and chest is clear to auscultation bilaterally.
- If not clear, describe.
Neurologic Examination:
The patient is awake, alert and oriented x 3. She is able to follow commands and answer questions appropriately. There is no aphasia or dysarthria. On cranial nerve assessment, pupils are 3 mm bilateral, round and reactive to light and
accommodation. Visual escamilla are full. Extraocular movements are intact. Facial sensations are intact and bilaterally symmetrical, there is no facial asymmetry. Hearing is intact bilaterally to normal conversation volume. Tongue palate and uvula
are midline. Sternocleidomastoid strengths are full bilaterally. Motor strengths are 5/5 bilateral upper and lower extremities on medical research [place] scale. There is no drift or involuntary movement noted. Deep tendon reflexes are 2+ bilateral
upper and lower extremities and Babinski is absent bilaterally. Sensations of pain, touch, temperature and vibration are intact and bilaterally symmetrical. There was no extinction noted on double simultaneous stimulation. Coordination is intact by
finger to nose bilaterally.
Lab Results: Addendum
Neuro Imaging:
Impression:
Ms.KELLY ART is a 38 year old F who has presented to the hospital with recurrent episodes of dizziness that has resolved. This is most consistent with vestibular migraines
Differentials for the patient's presentation include:
1. Vertebrobasilar insufficiency
Recommendations:
1. Topamax 25 mg qhs
2. Meclizine 25 mg q8 prn
3. Ecasa 81 mg Daily
Discussed patient care with:
Vital Signs and Labs
-
Vital Signs and Labs:
Vital Signs
Temp Pulse Resp BP Pulse Ox
36.9 C 82 14 140/87 99
10/04/23 08:00 10/04/23 08:00 10/04/23 08:00 10/04/23 08:00 10/04/23 08:30
Lab Results
10/04/23 04:31
10/04/23 04:31
Sodium 135 mmol/L (135-145) 10/04/23 04:31
Potassium 3.6 mmol/L (3.5-5.1) 10/04/23 04:31
BUN 7 mg/dl (7-17) 10/04/23 04:31
Glucose 86 mg/dl (70-99) 10/04/23 04:31
Calcium 8.9 mg/dl (8.4-10.2) 10/04/23 04:31
--- NOTE | 2023-10-04 18:10 | W.PN.UPDATE ---
Update Note
Progress Note Update
MRI Brain was reviewed and is WNL
[2023-10-04 23:28] VITALS: BP 129/100
[2023-10-04 23:48] VITALS: BP 129/84
[2023-10-05] MEDS: REGLAN 5 MG PO (00:26)
[2023-10-05] MEDS: ANTIVERT 25 MG PO (06:32)
[2023-10-05 07:25] VITALS: BP 132/94
[2023-10-05 07:50] VITALS: BP 132/94
[2023-10-05] MEDS: TOPAMAX 25 MG PO (09:02)
--- NOTE | 2023-10-05 09:43 | W.PN.HOSP.TC ---
Addendum entered and electronically signed by Ramiro Prince DO 10/05/23 09:49:
I spoke with gastroenterology, Dr. Wahl. He recommends discharge today and outpatient follow-up with the GI service. Possible diagnosis of IBS.
Original Note:
Today's Communication/Plan
-
Discharge
Assessment / Plan
Assessment / Plan
Gen-AAOx3, NAD
HEENT-NC, AT, anicteric, clear oral mm
Neck-supple
CV-reg, no M, +S1/S2
Lungs-clear B/L
Abd-soft, NT, ND
Ext-no edema
Musculoskeletal-no cyanosis, clubbing
Skin-warm and dry
Neuro-grossly non-focal
Psych-calm, cooperative
Possible vestibular migraine -brain MRI normal. Neurology recommends Topamax on discharge. Outpatient follow-up.
Elevated blood pressure -follow-up with PCP.
Elevated liver enzymes -total bili 1.5 mild transaminase elevation, normal alkaline phosphatase. Follow-up with PCP.
Anxiety disorder
Endometriosis
Full code
Dispo -medically stable for discharge. Follow-up with PCP, GI, neurology.
32-minute spent in discharge process.
Anticipated Discharge: Today
Subjective/Interval History
-
Date of Service: October 05, 2023
Patient seen and examined. Events overnight noted. Currently no complaints.
Objective Data
-
Vital Signs:
Vital Signs
Temp Pulse Resp BP Pulse Ox
98.2 F 88 16 132/94 98
10/05/23 07:25 10/05/23 07:25 10/05/23 07:25 10/05/23 07:25 10/05/23 07:25
I&O
10/04/23 10/05/23 10/06/23
06:59 06:59 06:59
Intake Total 360 / 360 1860 / 1860
Balance / 1859
Review of Systems
-
History Source: Patient
All other systems: Reviewed and negative
--- NOTE | 2023-10-05 09:48 | W.DS.TRANS ---
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
-
Discharge Instructions:
Discharge Diagnosis/Procedures Vestibular migraine
Diet Regular
Activity As tolerated
Driving Restrictions As prior to admission
Bathing Restrictions None
Instructions:
Stand-Alone Forms:
Changes to Home Medications: No
Discharge Medications:
DC Medications w/original date entered in [facility]
bluiaon-snfcekmfowqff-cziehvzd 250 mg-250 mg-65 mg tablet (Excedrin Migraine) 2 tab PO BIDPRN PRN migraine 10/03/23
ergocalciferol (vitamin D2) 1,250 mcg (50,000 unit) capsule 1,250 mcg PO BAXTER Supplement 10/03/23
ethynodiol diacetate-ethinyl estradiol 1 mg-35 mcg tablet (Kelnor) 1 tab PO HS Hormonal Agent 10/03/23
loperamide 2 mg capsule 2 mg PO DIRECTED PRN diarrhea 10/03/23
omeprazole 20 mg tablet,delayed release 20 mg PO DAILY PRN acid reflux 10/03/23
aspirin 81 mg tablet,delayed release (Dhaval Low Dose Aspirin) 81 mg PO DAILY #30 tabs 10/05/23
topiramate 25 mg tablet 25 mg PO DAILY #30 tabs 10/05/23
Home Medication Changes
Pending Results: No
--- NOTE | 2023-10-05 12:06 | CON.GI ---
Consultation
-
Date/Time Consultation Requested: 10/05/2023
Date/Time Consultation Performed: 10/05/2023
Performing Provider: Brian Wahl
Reason for Consultation: diarrhea
Medical History
Chief Complaint / HPI
Chief Complaint: diarrhea
History of Present Illness:
Patient is a 38-year-old female with history of hemorrhoids, anxiety, endometriosis, cervical cyst who presents with dizziness. Patient was evaluated by neurology who deemed pt stable enough for d/c home. Called to evaluate patient for chronic
diarrhea. He complains of chronic diarrhea since 08/2023. She reports having about 3-4 loose/watery BM without blood. Had regular bowel movements before. She denies recent history of viral infection or gastroenteritis. Her diarrhea does not wake
her from sleep. She does not think her diarrhea is related to type of food she consumes.
Past Medical History
Past Medical History: Other
Past Surgical History: Other
Social History
Tobacco: Non-Smoker
Alcohol: Daily
Family History
Family History: Reviewed & Not Pertinent
Allergies / Home Medications
Allergy/AdvReac Type Severity Reaction Status Date / Time
No Known Allergies Allergy Verified 10/03/23 17:13
�Medication �Instructions �Recorded
ywmbhin-fsaeagauhtjbx-fiyvvdon 250 2 tab PO BIDPRN PRN migraine 10/03/23
mg-250 mg-65 mg tablet (Excedrin
Migraine)
ergocalciferol (vitamin D2) 1,250 1,250 mcg PO BAXTER Supplement 10/03/23
mcg (50,000 unit) capsule
ethynodiol diacetate-ethinyl 1 tab PO HS Hormonal Agent 10/03/23
estradiol 1 mg-35 mcg tablet
(Kelnor)
loperamide 2 mg capsule 2 mg PO DIRECTED PRN diarrhea 10/03/23
omeprazole 20 mg tablet,delayed 20 mg PO DAILY PRN acid reflux 10/03/23
release
aspirin 81 mg tablet,delayed 81 mg PO DAILY #30 tabs 10/05/23
release (Dhaval Low Dose Aspirin)
topiramate 25 mg tablet 25 mg PO DAILY #30 tabs 10/05/23
Review of Systems
Vital Signs
Temp Pulse Resp BP Pulse Ox
98.2 F 88 16 132/94 98
10/05/23 07:50 10/05/23 07:50 10/05/23 07:50 10/05/23 07:50 10/05/23 08:00
Physical Exam
Exam
General: Well Developed and Well Nourished
HEENT: Normocephalic and Anicteric
Respiratory: Clear
Cardiac: S1/S2
GI: Soft, Non Tender, Non Distended and Normal Bowel Sounds
Results
WBC 9.6 10^3/uL (4.8-10.8) 10/04/23 04:31
Hgb 12.1 g/dL (12.0-16.0) 10/04/23 04:31
Hct 35.0 % (37.0-47.0) L 10/04/23 04:31
MCV 95.1 fL (81.0-99.0) 10/04/23 04:31
Plt Count 218 10^3/uL (130-400) D 10/04/23 04:31
Absolute Neuts (auto) 11.6 10^3/uL (1.4-6.5) H 10/03/23 19:08
Sodium 135 mmol/L (135-145) 10/04/23 04:31
Potassium 3.6 mmol/L (3.5-5.1) 10/04/23 04:31
Chloride 105 mmol/L (98-107) 10/04/23 04:31
Carbon Dioxide 22 mmol/L (22-30) 10/04/23 04:31
BUN 7 mg/dl (7-17) 10/04/23 04:31
Creatinine 0.7 mg/dL (0.6-1.0) 10/04/23 04:31
Calcium 8.9 mg/dl (8.4-10.2) 10/04/23 04:31
Total Bilirubin 1.5 mg/dl (0.2-1.3) H 10/04/23 04:31
AST 46 U/L (14-36) H 10/04/23 04:31
ALT 68 U/L (0-35) H 10/04/23 04:31
Alkaline Phosphatase 44 U/L (38-126) 10/04/23 04:31
Diagnostic Image Results:
Prior GI Procedures:
EGD:
Colonoscopy:
Assessment / Plan
-
38-year-old female with history of hemorrhoids, anxiety, endometriosis, and cervical cyst who complains of chronic diarrhea.
Impression / Rec:
1. Chronic diarrhea -patient complains of diarrhea/fecal urgency since 08/2023. Denies gastroenteritis or infectious illness around the time of onset. Denies recent antibiotic use. She is having approximately 3-4 watery/loose BMs without blood
but the baseline of regular daily BMs. No nocturnal symptoms. Her symptoms are most consistent with IBS�D, and can have further evaluation as OP basis. Patient prefers to follow-up with Dr. Islas or Dr. Oron[place], will schedule follow-up after d/c home.
Check celiac serologies to rule out possible celiac disease.
Total Time Spent with Patient (in minutes): 55
-
-
Thank you for consultation and allowing me to participate in the patient's care. Please call the process controls technician GI physician during the after hours with any questions or concerns.
[2023-10-05 23:32] LABS: IgA 444 mg/dl (70-400)
== END 2023-10-05 12:35 | disposition home or self-care (01) ==
LOC: 2 NORTH 23:56
PROVIDERS: Nurse Practitioner; Registered Nurse; ADMITTING PHYSICIAN Hospitalist; ATTENDING PHYSICIAN Hospitalist; CONSULT PHYSICIAN Internal Medicine Gastroenterology; CONSULT PHYSICIAN Psychiatry & Neurology Neurology; EMERGENCY PHYSICIAN Emergency Medicine; FAMILY PHYSICIAN Internal Medicine Geriatric Medicine
DX: G43.809 Other migraine, not intractable, without status migrainosus (principal); R03.0 Elevated blood-pressure reading, without diagnosis of hypertension; R42 Dizziness and giddiness; R19.7 Diarrhea, unspecified; R15.2 Fecal urgency; R07.9 Chest pain, unspecified; F41.1 Generalized anxiety disorder; R79.89 Other specified abnormal findings of blood chemistry; N80.9 Endometriosis, unspecified; R23.2 Flushing; R47.81 Slurred speech; H53.8 Other visual disturbances; R74.8 Abnormal levels of other serum enzymes; D72.829 Elevated white blood cell count, unspecified; R20.0 Anesthesia of skin; Z87.19 Personal history of other diseases of the digestive system
CPT/HCPCS: 70553; 80053; 82248; 82784; 82977; 83516; 84443; 85025; 85027; 86231; 87045; 87046; 87427; 89055; 93005; 96360; 99284; A9575; G0378

== ENCOUNTER 2023-10-20 07:11 | Emergency (ER) | payer BC, SELFPAY ==
[2023-10-20 07:14] VITALS: BP 166/104
--- NOTE | 2023-10-20 08:15 | ED.GENMED ---
History of Present Illness
General
Chief Complaint: Headache
Source: patient and records
Time Seen by Provider: 10/20/23 07:43
History of Present Illness
History of Present Illness:
38yoF with a history of endometriosis presenting with her father for evaluation of dizziness. Patient has been having intermittent episodes of dizziness since June of this year. She has been seen in the ED and by her PCP several times for these
symptoms. She underwent echocardiogram and Holter monitoring a few months ago which were reportedly normal. She was recently admitted from 10/03/23-10/05/23. She underwent MRI of the brain during her hospitalization which was normal. She was seen by
neurology and diagnosed with presumptive vestibular migraine and was prescribed Topamax. She noticed no improvement with the Topamax and she stopped taking this last week when she saw her PCP.
Her current symptoms began around 12:30pm yesterday when she was at her friend's house for a birthday libertarian. She initially started with tingling throughout her body which was followed by facial flushing and chest discomfort. She states it felt like
she was going to collapse. Her flushing has resolved but she reports continued dizziness which she describes as the room spinning. She is also endorses nausea and diarrhea. She denies any headache. She states these are the typical symptoms for her
dizziness episodes although her dizziness does not typically last this long.
Past History
Past History
ED Past Medical History: None and Other (hemorrhoids )
ED Past Surgical History: Gynecological (Endometriosis) and Other (Laparoscopic proceedure for endometriosis)
Social History
Tobacco: Non-smoker
Alcohol: Daily (wine 1-2 glasses)
Personal:
Living: with family
Employment: Employed
Phy Exam
General Physical Exam
General Presentation: well appearing and no apparent distress
General age: appears stated age
General Skin: warm and dry
General Habitus: normal
Cardiovascular Exam
Cardiovascular Exam: regular rate/rhythm, no edema and no murmur
Pulmonary Exam
Pulmonary Exam: lungs clear, no respiratory distress, no crackles and no wheezing
Gastrointestinal Exam
Gastrointestinal Exam: non tender, soft and non distended
Neurological Exam
Neurological Exam: alert and other (PERRL. EOMs intact. CN 2-12 grossly intact. Normal finger to nose and heel to judge bilaterally. )
Musculoskeletal Exam
Musculoskeletal Exam: no edema
Skin Exam
Skin Exam: normal color and warm/dry
Psychiatric Exam
Psychiatric Exam: normal mood/affect
Course
Orders/Labs/Results
Orders:
Orders
10/20/23 08:14
Electrocardiogram (*1) Urgent
Reason for Study: Other
Other Reason for Exam: Dizziness
EKG- Treatment ONCE
0.9% Sodium Chloride 1000 ml [Nss] 1,000 ml IV BOLUS
Ondansetron Injectable [Zofran] 4 mg IV NOW STA
Test Result ONCE
10/20/23 08:15
Diazepam [Valium] 5 mg PO NOW STA
10/20/23 08:26
Complete Blood Count/With Diff Urgent
Comprehensive Metabolic Panel Urgent
HCG, Serum Qualitative Screen Urgent
Magnesium Urgent
TSH Reflex To Free T4 Urgent
Troponin I Urgent
Abnormal Lab Results
10/20/23
08:26
WBC 11.1 H 10^3/uL
(4.8-10.8)
RBC 4.06 L 10^6/uL
(4.20-5.40)
MCH 33.3 H pg
(27.0-31.0)
Abs Immat Gran (auto) 0.1 H 10^3/uL
(0-0.05)
Absolute Neuts (auto) 8.5 H 10^3/uL
(1.4-6.5)
Neutrophils % 76.6 H %
(42.2-75.2)
Lymphocytes % 16.7 L %
(20.5-51.1)
Glucose 101 H mg/dl
(70-99)
ALT 55 H U/L
(0-35)
10/20/23 08:26
10/20/23 08:26
Vital Signs
Initial and Last Documented VS:
Initial Vital Signs
Temp Pulse Resp BP Pulse Ox
99.1 F 94 16 166/104 98
10/20/23 07:14 10/20/23 07:14 10/20/23 07:14 10/20/23 07:14 10/20/23 07:14
Last Documented Vital Signs
Temp Pulse Resp BP Pulse Ox
99.1 F 68 18 113/80 97
10/20/23 07:14 10/20/23 10:15 10/20/23 10:15 10/20/23 10:00 10/20/23 10:15
MDM/Problems Addressed
Differential Diagnosis Includes:
38yoF here with dizziness. Describes as the room spinning. Associated with flushing and palpitations. Recently admitted for the same and diagnosed with vestibular migraine although patient denies any headache. She is afebrile and hemodynamically
stable. She is well-appearing in no acute distress. No ataxia on neurologic exam. Differential diagnosis includes but is not limited to: Vestibular migraine, arrhythmia, electrolyte abnormality, dehydration, anxiety
Initial ED plan: Check cardiac labs, TSH, EKG. Will trial Valium, Zofran, and fluid bolus for symptoms.
*EKG
EKG Intrepretation Date: 10/20/23
EKG Intrepretation Time: 09:10
Heart Rate: 67
Rate: normal
Rhythm: sinus
Superior: normal axis
Interval: normal interval
QRS Pattern: normal QRS
Ischemia: no ischemia
*Critical Care Note
Total Time (30-74mins, 75-104mins- exclusive of procedures): Not Applicable
Update Note
Update Note:
Labs overall unremarkable. White count is minimally elevated at 11.1 which is nonspecific. Remainder of labs unchanged from prior hospitalization. EKG shows normal sinus rhythm without ectopy or ischemic changes. Troponin is normal. On
reassessment, patient is feeling improved after receiving Valium. She was ambulated by nursing staff and was able to ambulate with a steady gait. No indication for admission at this time. Patient has an appointment with neurology scheduled in 2
days. Will prescribe Valium as needed for home. ED return precautions discussed. She was discharged in stable condition.
ED Attending Note
-
Portions of this chart may have been created with voice recognition software.� Occasional wrong word or��sound alike� substitutions may have occurred due to the inherent limitations of voice recognition software.
Discharge Plan
Departure
Patient Disposition: Home (Routine Discharge)
Date of Disposition: 10/20/23
Time of Disposition: 10:36
Patient with high blood pressure during this ER visit?: Yes
Discharge Problem:
Vertigo
Instructions: Vertigo ED
Prescriptions:
New
ondansetron 4 mg tablet,disintegrating
4 mg PO Q6H PRN (Reason: nausea and vomiting) Qty: 20 0RF
diazepam [Valium] 5 mg tablet
5 mg PO TID PRN (Reason: dizziness) Qty: 9 0RF
No Action
loperamide 2 mg Capsule
2 mg PO DIRECTED PRN (Reason: diarrhea)
Patient Comments:
10/03/2023, pt. takes 2 capsules to start and then 1 capsule for every additional episode of diarrhea up to four times as needed.
ethynodiol diac-eth estradiol [Kelnor (28)] 1-35 mg-mcg tablet
1 tab PO HS
Patient Comments:
10/03/2023, pt. has had difficulty getting this prescription.
ergocalciferol (vitamin D2) 1,250 mcg (50,000 unit) Capsule
1,250 mcg PO BAXTER
Patient Comments:
10/03/2023, pt. took her last capsule on Friday (09/28/2023).
Excedrin Migraine 250-250-65 mg Tablet
2 tab PO BIDPRN PRN (Reason: migraine)
omeprazole 20 mg Tablet,Delayed Release (Dr/Ec)
20 mg PO DAILY PRN (Reason: acid reflux)
topiramate 25 mg Tablet
25 mg PO DAILY Qty: 30 0RF
aspirin [Dhaval Low Dose Aspirin] 81 mg tablet,delayed release (DR/EC)
81 mg PO DAILY Qty: 30 0RF
Referrals:
Victoria Alba DO [Family Provider] -
Activity Restrictions/Additional Instructions:
Take Zofran as needed for nausea. Take Valium as needed for dizziness. Do not drive or drink alcohol while taking Valium.
Please follow-up with your family doctor and neurology. Return to the ER immediately with any new or worsening symptoms.
Interventions
Interventions:
*Risk Screen - Suicide Last Done: 10/20/23 10:31
*General Assessment Last Done: 10/20/23 10:31
*Neglect/Abuse Screening Last Done: 10/20/23 10:31
*Nursing Disposition Last Done: 10/20/23 11:00
ED- Neurological Assessment Last Done: 10/20/23 10:31
Discharge Date and Time
Discharge Date/Time: 10/20/23 11:01
Print Language: [id number]
[2023-10-20] MEDS: VALIUM 5 MG PO (08:37)
[2023-10-20] MEDS: NSS 1000 IV (08:37)
[2023-10-20] MEDS: ZOFRAN 4 MG IV (08:37)
[2023-10-20 08:41] VITALS: BP 139/91
[2023-10-20 08:45] LABS: % Basophils 0.6 % (0-2); % Eosinophils 0.7 % (0-6); % Immature Granulocytes 0.5 % (0-0.5); % Lymphocytes 16.7 % (20.5-51.1); % Monocytes 4.9 % (1.7-9.3); % Neutrophils 76.6 % (42.2-75.2); Absolute Basophils 0.1 10^3/uL (0-0.2); Absolute Eosinophils 0.1 10^3/uL (0-0.7); Absolute Immature Granulocytes 0.1 10^3/uL (0-0.05); Absolute Lymphocytes 1.8 10^3/uL (1.2-3.4); Absolute Monocytes 0.5 10^3/uL (0.1-0.6); Absolute Neutrophils 8.5 10^3/uL (1.4-6.5); Hematocrit 37.9 % (37.0-47.0); Hemoglobin 13.5 g/dL (12.0-16.0); Mean Corp Hgb Conc. 35.6 g/dL (33.0-37.0); Mean Corpuscular Hgb 33.3 pg (27.0-31.0); Mean Corpuscular Volume 93.3 fL (81.0-99.0); Mean Platelet Volume 9.8 fL (7.4-10.4); Nucleated Red Blood Cells % 0 %; Platelet Count 276 10^3/uL (130-400); Red Blood Cell Count 4.06 10^6/uL (4.20-5.40); White Blood Cell Count 11.1 10^3/uL (4.8-10.8)
[2023-10-20 09:00] VITALS: BP 137/88
[2023-10-20 09:03] LABS: ALT (SGPT) 55 U/L (0-35); AST (SGOT) 33 U/L (14-36); Albumin 4.2 g/dl (3.5-5.0); Alkaline Phosphatase 52 U/L (38-126); Blood Urea Nitrogen 9 mg/dl (7-17); Calcium 9.3 mg/dl (8.4-10.2); Carbon Dioxide 26 mmol/L (22-30); Chloride 102 mmol/L (98-107); Glucose 101 mg/dl (70-99); Magnesium 2.2 mg/dl (1.6-2.3); Potassium 3.5 mmol/L (3.5-5.1); Sodium 135 mmol/L (135-145); Total Protein 6.7 g/dl (6.3-8.2); eGFR > 60.00
[2023-10-20 09:12] LABS: Troponin I < 0.012 ng/ml
[2023-10-20 09:16] LABS: HCG, Serum Qualitative Screen Negative
[2023-10-20 09:31] LABS: TSH Reflex To Free T4 3.95 uIU/ml (0.47-4.68)
[2023-10-20 10:00] VITALS: BP 113/80
== END 2023-10-20 11:01 | disposition home or self-care (01) ==
LOC: EMR 07:11
PROVIDERS: Physician Assistant; EMERGENCY PHYSICIAN Emergency Medicine; FAMILY PHYSICIAN Family Medicine
DX: R42 Dizziness and giddiness (principal); R51.9 Headache, unspecified; R07.89 Other chest pain; N80.9 Endometriosis, unspecified; Z87.19 Personal history of other diseases of the digestive system
CPT/HCPCS: 99283; 96374; 96361; 80053; 83735; 84443; 84484; 84703; 85025; 93005

== ENCOUNTER → 2023-11-25 14:04 | Outpatient (REF) | payer BC, SELFPAY | LOC: HWRAD 14:04 | PROVIDERS: ATTENDING PHYSICIAN Nurse Practitioner Acute Care; FAMILY PHYSICIAN Family Medicine | DX: R19.7 Diarrhea, unspecified (principal); R23.2 Flushing; R97.8 Other abnormal tumor markers | CPT/HCPCS: 71260; 74177; Q9967 ==

== ENCOUNTER → 2023-12-19 06:40 | Day surgery (SDC) | payer BC, SELFPAY | LOC: GI 06:40 | PROVIDERS: ATTENDING PHYSICIAN Internal Medicine Gastroenterology | DX: R19.4 Change in bowel habit (principal); K64.8 Other hemorrhoids; R12 Heartburn; K31.89 Other diseases of stomach and duodenum | CPT/HCPCS: 45380; 43239; 88305; 88342 ==

== ENCOUNTER → 2024-03-25 22:00 | Outpatient (REF) | payer BC, SELFPAY | LOC: DHSLP 22:00 | PROVIDERS: ATTENDING PHYSICIAN Family Medicine; FAMILY PHYSICIAN Internal Medicine Cardiovascular Disease | DX: G47.19 Other hypersomnia (principal); R06.83 Snoring | CPT/HCPCS: 95800 ==

== ENCOUNTER → 2024-05-07 07:28 | Outpatient (REF) | payer BC, SELFPAY | LOC: RAD 07:28 | PROVIDERS: ATTENDING PHYSICIAN Internal Medicine; FAMILY PHYSICIAN Family Medicine | DX: E04.1 Nontoxic single thyroid nodule (principal) | CPT/HCPCS: 76536 ==

== ENCOUNTER → 2024-09-20 07:15 | Outpatient (REF) | payer BC, SELFPAY | LOC: HWRAD 07:15 | PROVIDERS: ATTENDING PHYSICIAN Internal Medicine; FAMILY PHYSICIAN Family Medicine | DX: R10.9 Unspecified abdominal pain (principal); R14.0 Abdominal distension (gaseous) | CPT/HCPCS: 76700 ==

== ENCOUNTER 2024-11-29 11:55 | Emergency (ER) | payer BC, SELFPAY ==
[2024-11-29 12:03] VITALS: BP 143/91
[2024-11-29 12:33] LABS: Hematocrit 39.1 % (37.0-47.0); Hemoglobin 13.5 g/dL (12.0-16.0); Mean Corp Hgb Conc. 34.5 g/dL (33.0-37.0); Mean Corpuscular Volume 94.9 fL (81.0-99.0); Nucleated Red Blood Cells % 0 %; Platelet Count 298 10^3/uL (130-400); Red Cell Dist. Width 12.4 % (11.5-14.5)
[2024-11-29 12:47] LABS: ALT (SGPT) 20 U/L (0-35); AST (SGOT) 24 U/L (14-36); Albumin 4.9 g/dl (3.5-5.0); Alkaline Phosphatase 57 U/L (38-126); Blood Urea Nitrogen 11 mg/dl (7-17); Calcium 9.2 mg/dl (8.4-10.2); Carbon Dioxide 24 mmol/L (22-30); Chloride 105 mmol/L (98-107); Glucose 95 mg/dl (70-99); Potassium 4.4 mmol/L (3.5-5.1); Sodium 137 mmol/L (135-145); Total Protein 7.8 g/dl (6.3-8.2); eGFR > 60.00
[2024-11-29 12:58] LABS: Troponin I < 0.012 ng/ml
--- NOTE | 2024-11-29 14:34 | ED.GENMED ---
History of Present Illness
General
Chief Complaint: Chest Pain
Source: patient and family (Mom states that she has had multiple trips to the emergency department and this is similar to the past)
Exam Limitations: none
Time Seen by Provider: 11/29/24 14:16
History of Present Illness
History of Present Illness:
Note:
CHIEF COMPLAINT(S)
Blood pressure elevation and potential mast cell disease exacerbation.
HISTORY OF PRESENT ILLNESS
The patient is a 39-year-old female with a recent diagnosis of mast cell activation syndrome, presenting with elevated blood pressure. She reports a history of episodes of blood pressure spikes and mast cell activation, characterized by skin
breakouts and facial flushing, coinciding with menstrual periods. Most recently, she experienced a significant rise in blood pressure to 164/121 mmHg while at work, with associated symptoms including dizziness. The patient noted that her usual
method of elevating her legs did not alleviate her symptoms.She has identified certain stressors, including poor sleep, caffeine use, recent alcohol consumption, and stress related to work and family issues, as potential triggers for her condition.
Despite feeling better upon arrival at the medical facility, the patient expressed concern about needing to use her EpiPen, which she did not ultimately require. Patient mitts that she feels much better now. She often will get outpatient IV fluids
from her doctor which include vitamin C and saline
CHRONIC MEDICAL CONDITIONS SIGNIFICANTLY AFFECTING CARE
The patient has been managing her condition with Vitamin C and normal saline infusions, which have helped improve her symptoms in the past. She also takes cromolyn sodium regularly to stabilize mast cells. Prescribed medications for blood pressure
management and mast cell stabilization include midodrine and fludrocortisone, both taken in the morning.
SOCIAL DETERMINANTS AFFECTING HEALTH
The patient described significant stress related to work and family dynamics. She reported limited sleep quality, which may be impacting her health and exacerbating her symptoms. The patient also mentioned some financial burden due to the costs
associated with treatment and care.
MEDICATIONS
- Midodrine
- Fludrocortisone
- Cromolyn Sodium
- Vitamin C
- Saline infusions
- EpiPen (prescribed, but not recently used)
REVIEW OF SYSTEMS
- Cardiovascular: Episodes of elevated blood pressure and associated dizziness.
- Integumentary: Skin breakouts and flushing coinciding with mast cell disease exacerbation.
- Neurological: Dizziness reported during exacerbation.
- General: Reports feeling better at present but describes continued stress and fatigue.
PHYSICAL EXAM
General: Alert, no acute distress.
Skin: Warm, dry.
Head: Normocephalic, atraumatic.
Neck: Supple, trachea midline.
Eye, Ears, Nose, Mouth, and Throat: Oral mucosa moist.
Cardiovascular: Normal peripheral perfusion, No edema.
Respiratory: Respirations are non-labored.
Gastrointestinal: Abdomen nondistended.
Back: Normal range of motion, Normal alignment.
Musculoskeletal: Normal range of motion, normal strength.
Neurological: Alert and oriented to person, place, time, and situation, No focal neurological deficit observed.
Psychiatric: Cooperative, appropriate mood & affect.
PROBLEM LIST
Acute Problems:
- Elevated blood pressure
- Potential mast cell disease exacerbation
Chronic Problems:
- Mast cell activation syndrome
PLAN
1. Administer a liter of intravenous normal saline to improve hydration status and symptomatic relief.
2. Monitor blood pressure and reassess for any additional symptoms post-infusion.
3. Reinforce adherence to prescribed medications and hydration guidelines.
4. Consider referral for ongoing management of mast cell activation syndrome, possibly exploring the use of continuous hormonal control to mitigate periodic exacerbations.
DIFFERENTIAL DIAGNOSIS
The Differential Diagnosis includes, in no particular order and is not limited to:
1. Mast cell activation syndrome exacerbation
2. Hypertensive crisis
3. Anxiety or panic attack
4. Allergic reaction
5. Medication side effect or interaction
6. Dehydration or electrolyte imbalance
7. Pheochromocytoma
8. Cushings syndrome
9. Thyroid dysfunction
10. Cardiovascular disorder such as arrhythmia
EKG
My independent EKG interpretation is:
- Rhythm: Normal
- Heart Rate: 72 bpm
- [place]: Normal
- Notable Intervals: Not specified
- ST Segment Changes: None observed
- T Wave Inversions: None observed
- Arrhythmias: None observed
- Additional Findings: No acute ST/T changes
Disposition:
SUMMARY OF ENCOUNTER
The patient is a 39-year-old female with a known diagnosis of mast cell activation syndrome presenting with complaints related to an episode occurring at work, potentially triggered by stressors such as recent alcohol consumption, caffeine intake,
and poor sleep. Symptoms included elevated blood pressure and dizziness. In the emergency department, she received a liter of normal saline. Her symptoms improved significantly after hydration. An EKG and lab work were unremarkable, suggesting it
was safe for discharge with outpatient follow-up.
DISPOSITION
The patient was discharged with instructions for follow-up care.
PLAN
Administered a liter of intravenous normal saline to address dehydration and relieve symptoms. Monitoring of blood pressure was recommended, with reinforcement of adherence to prescribed medications and consideration of ongoing management of mast
cell activation syndrome with potential hormonal control to reduce periodic exacerbations. The patient should reduce caffeine and alcohol intake to minimize symptom triggers and improve sleep hygiene.
INDEPENDENT REVIEW OF LABS AND INTERPRETATION OF TESTS
My independent review of EKG indicates normal rhythm, heart rate of 72 bpm, normal axis, and no acute ST/T changes.
PATIENT EDUCATION AND COUNSELING
The patient was advised on the importance of avoiding identified triggers, such as excessive caffeine and alcohol, and the importance of maintaining adequate hydration and sleep quality. Emphasis was placed on adherence to her medication regimen and
lifestyle modifications to help manage her condition effectively.
FOLLOW-UP INSTRUCTIONS
The patient should follow up with her primary care provider and/or specialists for ongoing management of mast cell activation syndrome and monitoring of blood pressure.
MEDICATION RECONCILIATION
Current medications include midodrine, fludrocortisone, cromolyn sodium, regular saline infusions, vitamin C, and an EpiPen, which has not been used recently.
MEDICAL DECISION MAKING
-Complexity of Data Reviewed: Chronic conditions affecting care include mast cell activation syndrome and episodes of elevated blood pressure. Differential diagnoses considered were mast cell activation syndrome exacerbation, hypertensive crisis,
anxiety, allergic reaction, medication side effect, dehydration, pheochromocytoma, Cushings syndrome, thyroid dysfunction, and cardiovascular disorder.
-Data:
Category 1
Non-emergency department records reviewed, and no significant abnormalities were identified. Clinical information was obtained from the patients history and presentation.
Category 2
My independent interpretation of the EKG was normal.
-Risk:
Prescription medication was discussed, particularly for managing blood pressure and mast cell stabilization, adhering closely to current prescribed medications. Consideration of Admission/Observation: Escalation of care, including
admission/observation, was considered due to the complexity and risk associated with the patients symptoms and conditions. However, the patient was deemed safe for outpatient management with close follow-up, as vital signs were stable, the patient
improved significantly post-treatment, and was agreeable to discharge with reliable follow-up.
DIAGNOSIS
1. Mast Cell Activation Syndrome (ICD-10: D89.42)
2. Episodic Hypertension (ICD-10: I10)
Past History
Past History
ED Past Medical History: None and Other (hemorrhoids )
ED Past Surgical History: Gynecological (Endometriosis) and Other (Laparoscopic proceedure for endometriosis)
Social History
Tobacco: Non-smoker
Alcohol: Daily (wine 1-2 glasses)
Personal:
Living: with family
Employment: Employed
Phy Exam
Physical Exam
Physical Exam:
.
Scores
Heart Score for Chest Pain Patients
STEMI patient?: Not applicable
Course
Orders/Labs/Results
Orders:
Orders
11/29/24 12:09
Electrocardiogram (*1) Urgent
Reason for Study: Chest Pain
EKG- Treatment ONCE
11/29/24 12:19
CMP [Comprehensive Metabolic Panel] Urgent
Complete Blood Count/With Diff Urgent
Troponin I Urgent
11/29/24 14:32
0.9% Sodium Chloride 1000 ml [Nss] 1,000 ml IV BOLUS
Abnormal Lab Results
11/29/24
12:19
RBC 4.12 L 10^6/uL
(4.20-5.40)
MCH 32.8 H pg
(27.0-31.0)
11/29/24 12:19
11/29/24 12:19
Vital Signs
Initial and Last Documented VS:
Initial Vital Signs
Temp Pulse Resp BP Pulse Ox
98.1 F 79 18 143/91 100
11/29/24 12:03 11/29/24 12:03 11/29/24 12:03 11/29/24 12:03 11/29/24 12:03
Last Documented Vital Signs
Temp Pulse Resp BP Pulse Ox
98.1 F 79 18 143/91 100
11/29/24 12:03 11/29/24 12:03 11/29/24 12:03 11/29/24 12:03 11/29/24 14:37
*Pulse Oximetry
SaO2: 100
Oxygen Mode of Delivery: Room air
Patient hypoxic: no
*Critical Care Note
Total Time (30-74mins, 75-104mins- exclusive of procedures): Not Applicable
ED Attending Note
-
Portions of this chart may have been created with voice recognition software.� Occasional wrong word or��sound alike� substitutions may have occurred due to the inherent limitations of voice recognition software.
Discharge Plan
Departure
Patient Disposition: Home (Routine Discharge)
Date of Disposition: 11/29/24
Time of Disposition: 14:35
Patient with high blood pressure during this ER visit?: Yes
Discharge Problem:
Dizziness, Mast cell activation syndrome
Instructions: BLOOD PRESSURE
Prescriptions:
No Action
loperamide 2 mg Capsule
2 mg PO DIRECTED PRN (Reason: diarrhea)
Patient Comments:
10/03/2023, pt. takes 2 capsules to start and then 1 capsule for every additional episode of diarrhea up to four times as needed.
ethynodiol diac-eth estradiol [Kelnor (28)] 1-35 mg-mcg tablet
1 tab PO HS
Patient Comments:
10/03/2023, pt. has had difficulty getting this prescription.
ergocalciferol (vitamin D2) 1,250 mcg (50,000 unit) Capsule
1,250 mcg PO BAXTER
Patient Comments:
10/03/2023, pt. took her last capsule on Friday (09/28/2023).
Excedrin Migraine 250-250-65 mg Tablet
2 tab PO BIDPRN PRN (Reason: migraine)
omeprazole 20 mg Tablet,Delayed Release (Dr/Ec)
20 mg PO DAILY PRN (Reason: acid reflux)
topiramate 25 mg Tablet
25 mg PO DAILY Qty: 30 0RF
aspirin [Dhaval Low Dose Aspirin] 81 mg tablet,delayed release (DR/EC)
81 mg PO DAILY Qty: 30 0RF
ondansetron 4 mg tablet,disintegrating
4 mg PO Q6H PRN (Reason: nausea and vomiting) Qty: 20 0RF
diazepam [Valium] 5 mg tablet
5 mg PO TID PRN (Reason: dizziness) Qty: 9 0RF
Referrals:
Victoria Alba DO [Family Provider, Family Practice]
Activity Restrictions/Additional Instructions:
Mast Cell Activation Syndrome
Please see your doctor in the next 3 to 5 days for follow-up and reevaluation. Drink plenty of fluids and maintain proper hydration. Return immediate for chest pain, shortness of breath, palpitations, weakness of any kind or any other concerns.
Interventions
Interventions:
*Risk Screen - Suicide Last Done: 11/29/24 12:03
*General Assessment Last Done: 11/29/24 14:46
*Neglect/Abuse Screening Last Done: 11/29/24 12:03
*ED- Fall Risk Assessment Last Done: 11/29/24 14:46
*ED COVID-19 Vaccine History Last Done: 11/29/24 14:46
*Nursing Disposition Last Done: 11/29/24 14:46
ED- Cardiac Assessment Last Done: 11/29/24 14:46
Discharge Date and Time
Discharge Date/Time: 11/29/24 15:32
Print Language: [id number]
[2024-11-29] MEDS: NSS 1000 IV (14:43)
== END 2024-11-29 15:32 | disposition home or self-care (01) ==
LOC: EMR 11:55
PROVIDERS: Physician Assistant; EMERGENCY PHYSICIAN Emergency Medicine; FAMILY PHYSICIAN Family Medicine
DX: R42 Dizziness and giddiness (principal); D89.40 Mast cell activation, unspecified; I10 Essential (primary) hypertension; E86.0 Dehydration; Z79.899 Other long term (current) drug therapy
CPT/HCPCS: 96360; 99284; 80053; 84484; 85025; 93005

== ENCOUNTER 2024-12-23 08:35 | Outpatient (RCR) | payer BC, SELFPAY ==
[2024-12-09 09:15] VITALS: BP 132/85
[2024-12-09] MEDS: NSS 1000 IV ×2 (09:20→11:56)
[2024-12-09 14:25] VITALS: BP 133/91
[2024-12-23] MEDS: NSS 1000 IV ×2 (08:52→11:21)
[2024-12-23 11:27] VITALS: BP 138/88
== END 2024-12-24 09:05 | disposition home or self-care (01) ==
LOC: OID 08:35
PROVIDERS: ATTENDING PHYSICIAN Internal Medicine; FAMILY PHYSICIAN Family Medicine
DX: D89.40 Mast cell activation, unspecified (principal); G90.09 Other idiopathic peripheral autonomic neuropathy
CPT/HCPCS: 96360; 96361

== ENCOUNTER 2024-12-24 12:17 | Emergency (ER) | payer BC, SELFPAY ==
[2024-12-24 12:22] VITALS: BP 152/107
[2024-12-24 12:41] VITALS: BP 141/102
[2024-12-24 13:00] VITALS: BP 132/91
[2024-12-24 13:14] LABS: Hematocrit 38.3 % (37.0-47.0); Hemoglobin 13.2 g/dL (12.0-16.0); Mean Corp Hgb Conc. 34.5 g/dL (33.0-37.0); Mean Corpuscular Volume 94.8 fL (81.0-99.0); Nucleated Red Blood Cells % 0 %; Platelet Count 236 10^3/uL (130-400); Red Cell Dist. Width 12.3 % (11.5-14.5)
[2024-12-24 13:34] LABS: D-Dimer < 0.27 ug/mlFEU (0.00-0.50)
[2024-12-24 13:40] LABS: Blood Urea Nitrogen 11 mg/dl (7-17); Calcium 9.7 mg/dl (8.4-10.2); Carbon Dioxide 25 mmol/L (22-30); Chloride 105 mmol/L (98-107); Glucose 96 mg/dl (70-99); Sodium 136 mmol/L (135-145); eGFR > 60.00
[2024-12-24 13:47] LABS: Troponin I < 0.012 ng/ml
[2024-12-24 14:00] VITALS: BP 124/82
[2024-12-24 14:37] LABS: Potassium 4.0 mmol/L (3.5-5.1)
--- NOTE | 2024-12-24 14:50 | ED.GENMED ---
History of Present Illness
General
Chief Complaint: Blood Pressure Problem
Source: patient
Exam Limitations: none
Time Seen by Provider: 12/24/24 12:32
Nursing documentation reviewed up to this point in time: agreed with
History of Present Illness
History of Present Illness:
pt is a 39 y/o F
mast cell stimulation syndrome
pt says as a result of this more recent diagnosis she gets IV infusions of vitamins and saline and had a '5 hour treatment' yesterday
she woke up in the night feeling elevated HR 110s and some chest pressure. she thought this was a mast cell flare but usually has more symptoms and didn't fully progress so she got concerned enough to call her PCP this morning who told her to come
in and get seen
she doesn't feel like she needs to be here in theED but she wanted to know that her IV infusion of saline did not cause her sodium to change
she also has been drinking different electorlyte mercedes and thinks that is contributing
her BP is high this morning but usually is highw ith mast cell flare
she is not having pleuritic CP, syncope, vomiting, leg swelling, rash, trouble swallowing, anxiety
she feels quite well actually and was annoyed that her PCP told her to come here.
she thought she could get outpatient lab rx.
Past History
Past History
ED Past Medical History: Other (hemorrhoids , mast cell stimatulation syndrome)
ED Past Surgical History: Gynecological (Endometriosis) and Other (Laparoscopic proceedure for endometriosis)
Social History
Tobacco: Non-smoker
Alcohol: Daily (wine 1-2 glasses)
Personal:
Living: with family
Employment: Employed
Phy Exam
Physical Exam
Physical Exam:
GENERAL: Alert , in no apparent distress, very well apeparing
EYE: pupils equal and reactive
NECK: Supple
ENT: o/p clr, mmm.
CARDIAC: Regular rate and rhythm .no tachycardia
LUNGS: Clear breath sounds bilaterally, no acute respiratory distress, no wheezes/rales/rhonchi
ABDOMEN: Soft, without focal tenderness, no r/g, no cvat, normal bowel sounds
NEUROLOGICAL: Alert and oriented, no focal neuro deficits
SKIN: Warm and dry, skin intact.
MUSCULOSKELETAL: No edema, well perfused. neg francesco's sign
PSYCH: Normal and appropriate interaction.
Course
Orders/Labs/Results
Orders:
Orders
12/24/24 12:27
Electrocardiogram (*1) Urgent
Reason for Study: Chest Pain
EKG- Treatment ONCE
12/24/24 13:00
Basic Metabolic Panel Urgent
Complete Blood Count/With Diff Urgent
D-Dimer Urgent
Troponin I Urgent
12/24/24 14:07
Potassium Urgent
Abnormal Lab Results
12/24/24
13:00
RBC 4.04 L 10^6/uL
(4.20-5.40)
MCH 32.7 H pg
(27.0-31.0)
Absolute Neuts (auto) 6.7 H 10^3/uL
(1.4-6.5)
12/24/24 13:00
12/24/24 14:07
Vital Signs
Initial and Last Documented VS:
Initial Vital Signs
Temp Pulse Resp BP Pulse Ox
36.9 C 97 20 152/107 98
12/24/24 12:22 12/24/24 12:22 12/24/24 12:22 12/24/24 12:22 12/24/24 12:22
Last Documented Vital Signs
Temp Pulse Resp BP Pulse Ox
36.9 C 77 18 130/91 99
12/24/24 12:22 12/24/24 14:55 12/24/24 14:55 12/24/24 14:55 12/24/24 14:55
MDM/Problems Addressed
Differential Diagnosis Includes:
anxiety, hypertension, mast cell
MDM/Problems Addressed:
39 y/o F
here for concerns for electrolyte disturbance and elevated BP
'she gets elevated BP amongst other symptoms with mast cell activation
but she only had hr elevation and bp elevation last night and no other symptoms so she got concerned her new IV treatmetns caused some issue
she feels well here
initiall bp elevated, downtrended to 130/90 which is her baseline
she has not had signfiicatn cp, but her 'usual cp'
ekg nonischemic
trop neg
d dimer neg
lytes normal
d/c home
*Pulse Oximetry
SaO2: 98
Oxygen Mode of Delivery: Room air
Patient hypoxic: no (98)
*Critical Care Note
Total Time (30-74mins, 75-104mins- exclusive of procedures): Not Applicable
ED Attending Note
-
Portions of this chart may have been created with voice recognition software.� Occasional wrong word or��sound alike� substitutions may have occurred due to the inherent limitations of voice recognition software.
Discharge Plan
Departure
Patient Disposition: Home (Routine Discharge)
Date of Disposition: 12/24/24
Time of Disposition: 14:48
Patient with high blood pressure during this ER visit?: Yes
Condition: Fair
Covid-19: Not Applicable
Discharge Problem:
Mast cell activation syndrome
Instructions: High Blood Pressure (DC)
Prescriptions:
No Action
diazepam [Valium] 5 mg tablet
5 mg PO TID PRN (Reason: dizziness) Qty: 9 0RF
famotidine 40 mg Tablet
40 mg PO HS
guanfacine 1 mg Tablet
1 mg PO HS
midodrine 2.5 mg Tablet
2.5 mg PO TID
epinephrine [EpiPen] 0.3 mg/0.3 mL Auto-Injector
0.3 mg IM PRN PRN (Reason: anaphylaxis)
fludrocortisone 0.1 mg Tablet
0.1 mg PO DAILY
Mineral Complex Tablet
1 tab PO BID
CoQ10 SG 100 100-100 mg-unit Capsule
2 cap PO DAILY
cholecalciferol (vitamin D3) [Vitamin D3] 125 mcg (5,000 unit) Tablet
125 mcg PO DAILY
olive leaf extract 250 mg Capsule
500 mg PO BID
Cortisolv 581-681-79-50 mg Capsule
1 cap PO HS
alpha lipoic acid 300 mg Tablet
300 mg PO BID
L-Carnitine 340 mg
340 mg PO BID
L-Lysine 1,500 mg
1,500 mg PO BID
cromolyn 200 mg
200 mg PO QID
Sleep Support (melatonin-herb) 1.5-22 mg-mcg Tablet, Chewable Dispersible
2 ea PO HS
Referrals:
Victoria Alba DO [Family Provider, Family Practice]
Activity Restrictions/Additional Instructions:
Your blood work was normal. Your symptoms are probably related to your mast cell syndrome. Your blood pressure came down nicely without intervention. Return for any concerns
Interventions
Interventions:
*Risk Screen - Suicide Last Done: 12/24/24 12:22
*General Assessment Last Done: 12/24/24 12:22
*Neglect/Abuse Screening Last Done: 12/24/24 12:22
*ED- Fall Risk Assessment Last Done: 12/24/24 12:40
*ED COVID-19 Vaccine History Last Done: 12/24/24 12:40
*Nursing Disposition Last Done: 12/24/24 14:58
ED- Cardiac Assessment Last Done: 12/24/24 12:40
ED- Neurological Assessment Last Done: 12/24/24 12:40
ED- Pulmonary Assessment Last Done: 12/24/24 12:40
Discharge Date and Time
Discharge Date/Time: 12/24/24 14:58
Print Language: HUNGARIAN
[2024-12-24 14:55] VITALS: BP 130/91
== END 2024-12-24 14:58 | disposition home or self-care (01) ==
LOC: EMR 12:17
PROVIDERS: Physician Assistant; EMERGENCY PHYSICIAN Emergency Medicine; FAMILY PHYSICIAN Family Medicine
DX: D89.40 Mast cell activation, unspecified (principal)
CPT/HCPCS: 99284; 80048; 84132; 84484; 85025; 85379; 93005

== ENCOUNTER 2025-02-04 07:47 | Outpatient (RCR) | payer BC, SELFPAY ==
[2025-01-07 08:40] VITALS: BP 130/78
[2025-01-07] MEDS: NSS 1000 IV ×2 (09:02→11:03)
[2025-01-21] MEDS: NSS 1000 IV ×2 (08:57→11:15)
[2025-01-21 09:01] VITALS: BP 133/91
[2025-02-04 08:01] VITALS: BP 136/85
[2025-02-04] MEDS: NSS 1000 IV ×2 (08:05→10:26)
== END 2025-02-04 23:59 | disposition home or self-care (01) ==
LOC: OID 07:47
PROVIDERS: ATTENDING PHYSICIAN Internal Medicine; FAMILY PHYSICIAN Family Medicine
DX: D89.40 Mast cell activation, unspecified (principal); G90.09 Other idiopathic peripheral autonomic neuropathy
CPT/HCPCS: 96360; 96361

== ENCOUNTER 2025-02-23 07:35 | Emergency (ER) | payer BC, SELFPAY ==
[2025-02-23 07:37] VITALS: BP 162/120
[2025-02-23 08:05] VITALS: BP 140/101; BMI 28.4
--- NOTE | 2025-02-23 08:19 | ED.GENMED ---
History of Present Illness
General
Chief Complaint: Fainting Sensation
Source: patient and records
Exam Limitations: none
Time Seen by Provider: 02/23/25 08:07
Nursing documentation reviewed up to this point in time: agreed with
History of Present Illness
History of Present Illness:
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 Patient reports that she was diagnosed with
dysautonomia as well as mast cell activation syndrome by her dry kiln feeder in [place] (Dr. Willy Bacon). She says she is on a treatment plan for her mast cell activation syndrome which includes H1 and H2 blockers at nighttime as well as IV
fluids every 2 weeks and various vitamins. She says that she has had symptoms over the past week and a half that to her suggest 'my whole body is inflamed.' It sounds like she is having intermittent episodes of lightheadedness. She says that she
has had pain essentially in her whole body�chest, abdomen, back, head. She says she feels very flushed. She says that she is on midodrine for dysautonomia/orthostatic hypotension however blood pressures have actually been running high recently.
She says that the symptoms are consistent with her typical symptoms of a mast cell flare which prompted her to come to the ER for evaluation.
Past History
Past History
ED Past Medical History: Other (hemorrhoids , mast cell stimatulation syndrome)
ED Past Surgical History: Gynecological (Endometriosis) and Other (Laparoscopic proceedure for endometriosis)
Social History
Tobacco: Non-smoker
Alcohol: Daily (wine 1-2 glasses)
Personal:
Living: with family
Employment: Employed
Review of Systems
Review of Systems
All Other Systems: ROS reviewed and negative except as documented in HPI and ROS
Constitutional: Reports fatigue; Denies fever
Respiratory: Reports trouble breathing
Cardiac: Reports chest pain
ABD/GI: Reports abdominal pain and nausea
Musculoskeletal: Reports neck pain and back pain
Neurological: Reports dizzy and headache
Endocrine: Reports other (Dry mouth)
Psychiatric: Reports anxiety
Phy Exam
Physical Exam
Physical Exam:
General: Awake, alert, oriented x3; no acute distress
Head: Normocephalic, atraumatic
Eyes: Conjunctiva normal without injection, pupils equal round and reactive to light bilaterally
Throat: Airway intact, handling secretions
Neck: Trachea midline, supple without meningismus
Lungs: Clear to auscultation bilaterally, no wheezing, rales, rhonchi
Heart: Regular rate and rhythm, no murmurs, gallops, or rubs
Abd: Soft, non distended, nontender
Neuro: Grossly intact
Skin: Warm and dry with no rash or hives noted
Extremities: No edema in extremities, equal pulses in all extremities
Scores
Heart Failure Risk
Heart Failure Risk Score: Not Applicable
Heart Score for Chest Pain Patients
STEMI patient?: Not applicable
Withdrawal Assessment of Alcohol
Withdrawal Assessment Completed?: Not applicable
Course
Orders/Labs/Results
Orders:
Orders
02/23/25 08:15
Electrocardiogram (*1) Urgent
Reason for Study: Fatigue / Weakness
EKG- Treatment ONCE
02/23/25 08:16
Test Result ONCE
02/23/25 08:20
0.9% Sodium Chloride 1000 ml [Nss] 1,000 ml IV BOLUS
02/23/25 08:35
CPK [Creatine Phosphokinase] Urgent
CRP [C-Reactive Protein] Urgent
Carboxyhemoglobin Urgent
Complete Blood Count/With Diff Urgent
Comprehensive Metabolic Panel Urgent
ESR [Erythrocyte Sed Rate] Urgent
HCG, Serum Qualitative Screen Urgent
Histamine, Whole Blood [S] Urgent
TSH Reflex To Free T4 Urgent
Troponin I Urgent
Tryptase [S] Urgent
Abnormal Lab Results
02/23/25
08:35
RBC 4.01 L 10^6/uL
(4.20-5.40)
MCH 32.7 H pg
(27.0-31.0)
02/23/25 08:35
02/23/25 08:35
Vital Signs
Initial and Last Documented VS:
Initial Vital Signs
Temp Pulse Resp BP Pulse Ox
37.1 C 108 18 162/120 97
02/23/25 07:37 02/23/25 07:37 02/23/25 07:37 02/23/25 07:37 02/23/25 07:37
Last Documented Vital Signs
Temp Pulse Resp BP Pulse Ox
37.1 C 75 15 137/90 100
02/23/25 07:37 02/23/25 09:15 02/23/25 09:15 02/23/25 09:00 02/23/25 09:15
MDM/Problems Addressed
Differential Diagnosis Includes:
Dehydration, electrolyte derangement, anxiety/panic, viral syndrome; patient has reported history of mast cell activation syndrome she has nothing objectively today to suggest anaphylaxis
MDM/Problems Addressed:
39-year-old female presents for evaluation of multiple complaints as described above�she says that she believes she is having a flare of her mast cell symptoms and that her whole body is inflamed. Blood pressure has been running high recently. She
is hypertensive here 162/120 in triage improved by my assessment to 140/100. Heart rate in the 90s during my assessment but was tachycardic in triage. No tachypnea or hypoxia, no fever noted. Physical exam is as above. Plan to check EKG, basic
labs. Patient is requesting that we send histamine and tryptase levels as these are her markers for mast cell flares�certainly we can add these on. Provide some IV fluids. Monitor on telemetry. Reassess at the above.
Labs reviewed: CBC and CMP no clinically significant abnormalities. Troponin undetectable. Her EKG shows sinus rhythm no concerning changes. Histamine and tryptase levels are send outs can be followed up on an outpatient basis. She has been
clinically stable will continue to monitor on telemetry.
Patient follow-up with her after fluids. She says that her mast cell symptoms tend to come and go in waves. She says right now she is managed with antihistamines can give antihistamines here and have her follow-up with her specialist, no clear
indication for admission. Patient is comfortable with this plan. All questions answered.
Acute Exacerbation and/or Progression of Chronic Illness: HTN
*Pulse Oximetry
SaO2: 100
Oxygen Mode of Delivery: Room air
Patient hypoxic: no (100%)
*EKG
Interpreted by ED Provider?: Yes
Heart Rate: 76
Rate: normal
Rhythm: sinus
Lytle: normal axis
Interval: normal interval
QRS Pattern: normal QRS
Ischemia: no ischemia
*Critical Care Note
Total Time (30-74mins, 75-104mins- exclusive of procedures): Not Applicable
Data Reviewed
Review of Other/Old Records Reveals: Labs and Records
Source: patient and records
ED Attending Note
-
Portions of this chart may have been created with voice recognition software.� Occasional wrong word or��sound alike� substitutions may have occurred due to the inherent limitations of voice recognition software.
Discharge Plan
Departure
Prescriptions:
No Action
diazepam [Valium] 5 mg tablet
5 mg PO TID PRN (Reason: dizziness) Qty: 9 0RF
famotidine 40 mg Tablet
40 mg PO HS
guanfacine 1 mg Tablet
1 mg PO HS
midodrine 2.5 mg Tablet
2.5 mg PO TID
epinephrine [EpiPen] 0.3 mg/0.3 mL Auto-Injector
0.3 mg IM PRN PRN (Reason: anaphylaxis)
fludrocortisone 0.1 mg Tablet
0.1 mg PO DAILY
Mineral Complex Tablet
1 tab PO BID
CoQ10 SG 100 100-100 mg-unit Capsule
2 cap PO DAILY
cholecalciferol (vitamin D3) [Vitamin D3] 125 mcg (5,000 unit) Tablet
125 mcg PO DAILY
olive leaf extract 250 mg Capsule
500 mg PO BID
Cortisolv 331-395-48-50 mg Capsule
1 cap PO HS
alpha lipoic acid 300 mg Tablet
300 mg PO BID
L-Carnitine 340 mg
340 mg PO BID
L-Lysine 1,500 mg
1,500 mg PO BID
cromolyn 200 mg
200 mg PO QID
Sleep Support (melatonin-herb) 1.5-22 mg-mcg Tablet, Chewable Dispersible
2 ea PO HS
cetirizine [Zyrtec] 10 mg Tablet
10 mg PO DAILY
Referrals:
Victoria Alba DO [Family Provider, Family Practice]
Interventions
Interventions:
*Risk Screen - Suicide Last Done: 02/23/25 07:37
*General Assessment Last Done: 02/23/25 07:37
*Neglect/Abuse Screening Last Done: 02/23/25 07:37
*ED Influenza Vaccine History Last Done: 02/23/25 07:41
ED- Cardiac Assessment Last Done: 02/23/25 08:06
ED- Neurological Assessment Last Done: 02/23/25 08:06
Discharge Date and Time
Print Language: MALDIVIAN
[2025-02-23] MEDS: NSS 1000 IV (08:36)
[2025-02-23 08:47] LABS: Carboxyhemoglobin 1.0 %; Hematocrit 39.0 % (37.0-47.0); Hemoglobin 13.1 g/dL (12.0-16.0); Mean Corp Hgb Conc. 33.6 g/dL (33.0-37.0); Mean Corpuscular Volume 97.3 fL (81.0-99.0); Nucleated Red Blood Cells % 0 %; Platelet Count 245 10^3/uL (130-400); Red Cell Dist. Width 12.5 % (11.5-14.5)
[2025-02-23 09:00] VITALS: BP 137/90
[2025-02-23 09:01] LABS: C-Reactive Protein < 5.00 mg/L (0.0-10.00); HCG, Serum Qualitative Screen Negative
[2025-02-23 09:07] LABS: ALT (SGPT) 19 U/L (0-35); AST (SGOT) 20 U/L (14-36); Albumin 4.3 g/dl (3.5-5.0); Alkaline Phosphatase 58 U/L (38-126); Blood Urea Nitrogen 9 mg/dl (7-17); Calcium 9.1 mg/dl (8.4-10.2); Carbon Dioxide 28 mmol/L (22-30); Chloride 104 mmol/L (98-107); Estimated Creatinine Clearance > 125 ml/min; Glucose 86 mg/dl (70-99); Potassium 3.9 mmol/L (3.5-5.1); Sodium 139 mmol/L (135-145); Total Protein 7.1 g/dl (6.3-8.2); eGFR > 60.00
[2025-02-23 09:10] LABS: Troponin I < 0.012 ng/ml
[2025-02-23 10:00] VITALS: BP 129/92
[2025-02-23] MEDS: BENADRYL 12.5 MG IV (10:16)
[2025-02-23] MEDS: PEPCID 20 MG IV (10:17)
== END 2025-02-23 10:55 | disposition home or self-care (01) ==
LOC: EMR 07:35
PROVIDERS: EMERGENCY PHYSICIAN Emergency Medicine; FAMILY PHYSICIAN Family Medicine
DX: R42 Dizziness and giddiness (principal); I10 Essential (primary) hypertension; D89.40 Mast cell activation, unspecified
CPT/HCPCS: 99284; 96374; 96375; 96361; 80053; 82375; 82550; 83088; 83520; 84443; 84484; 84703; 85025; 85652; 86140; 93005

== ENCOUNTER 2025-03-04 07:45 | Outpatient (RCR) | payer BC, SELFPAY ==
[2025-02-16 08:30] VITALS: BP 110/88
[2025-02-16] MEDS: NSS 1000 IV ×2 (08:45→11:16)
[2025-02-16 13:39] VITALS: BP 140/88
[2025-03-04] MEDS: NSS 1000 IV ×2 (08:06→10:35)
[2025-03-04 08:07] VITALS: BP 144/83
== END 2025-03-06 23:59 | disposition home or self-care (01) ==
LOC: OID 07:45
PROVIDERS: ATTENDING PHYSICIAN Internal Medicine; FAMILY PHYSICIAN Family Medicine
DX: D89.40 Mast cell activation, unspecified (principal); G90.09 Other idiopathic peripheral autonomic neuropathy
CPT/HCPCS: 96360; 96361

== ENCOUNTER 2025-04-01 07:37 | Outpatient (RCR) | payer BC, SELFPAY ==
[2025-03-17] MEDS: NSS 1000 IV ×2 (08:56→10:58)
[2025-03-17 09:00] VITALS: BP 121/80
[2025-03-17 13:00] VITALS: BP 130/90
[2025-04-01 08:03] VITALS: BP 124/91
[2025-04-01] MEDS: NSS 1000 IV ×2 (08:08→10:24)
== END 2025-04-04 09:28 | disposition home or self-care (01) ==
LOC: OID 07:37
PROVIDERS: ATTENDING PHYSICIAN Internal Medicine; FAMILY PHYSICIAN Family Medicine
DX: D89.40 Mast cell activation, unspecified (principal); G90.09 Other idiopathic peripheral autonomic neuropathy
CPT/HCPCS: 96360; 96361